=== PATIENT | male | born 1965 | race Caucasian/White ===

== ENCOUNTER 2022-07-23 09:33 | Emergency (ER) | payer OTHER, SELFPAY ==
[2022-07-23 09:56] VITALS: BP 146/72; PULSE 65; RESP 18; TEMP 36.4; O2SAT 99
--- NOTE | 2022-07-23 10:05 | ED.GENADULT ---
HPI - General Adult General Chief complaint: Weakness Stated complaint: weakness Time Seen by Provider: 07/23/22 10:07 Source: patient, RN notes reviewed and old records reviewed Mode of arrival: ambulatory Limitations: no limitations History of Present Illness HPI narrative: 56-year-old male presents to the [facility] with 3 weeks of generalized weakness, decreased appetite after having 3 teeth pulled 3 weeks ago. States symptoms have progressively been getting worse. states that he was not prescribed any pain medication or antibiotics at that time. states that on Wednesday she finally called the dentist and was prescribed amoxicillin. also states for the last 3 weeks he has been having bleeding from the gums. States this morning about an hour prior to arrival had a syncopal episode, sitting in a chair, significant other reports that his eyes rolled in the back of his head and he became unresponsive. States that they called 911 but a neighbor came over and helped him into a car and [facility] denies that he fell or hit his head Patient denies any shortness of breath, chest pain. Onset (ago): week(s) (3) Pain Consistency: constant Associated symptoms: loss of appetite, malaise, syncope and weakness Related Data Home Medications Medication Instructions Recorded Confirmed amoxicillin 500 mg capsule 500 mg PO TID 07/23/22 07/23/22 sildenafil 25 mg tablet 25 mg PO DAILY PRN erectil 07/23/22 07/23/22 dysfuntion Allergies Allergy/AdvReac Type Severity Reaction Status Date / Time No Known Allergies Allergy Verified 07/23/22 10:23 Review of Systems Review of Systems: All systems reviewed & are unremarkable except as noted in HPI and below Constitutional: Constitutional: Reports as per HPI, Reports fatigue, Reports lethargy, Reports poor appetite and Reports weakness Eyes: Eyes: Reports no additional eye complaints ENT: Reports as per HPI Cardiovascular: Cardiovascular: Reports no additional cardiovascular complaints, Denies chest pain and Denies dyspnea Respiratory: Respiratory: Reports no additional respiratory complaints, Denies chest congestion, Denies cough and Denies dyspnea Gastrointestinal: Gastrointestinal: Reports no additional gastrointestinal complaints, Denies abdominal pain, Denies nausea and Denies vomiting Musculoskeletal: Musculoskeletal: Reports no additional musculoskeletal complaints Integumentary/Breasts: Skin/Breast: Reports system reviewed and no additional complaints, except as docu Neurologic: Reports as per HPI Psychiatric: Psychiatric: Reports no additional psychiatric complaints Allergic/Immunologic: Allergic/Immunologic: Reports no additional allergic/immunologic complaints [facility] Surgical History Surgical History History of tonsillectomy and adenoidectomy Social History Social History Smoking packs per day: 0.5 Smoking cigarettes per day: 10.0 Years smoked: 8 Smoking pack-years: 4.00 Smoking status: Former smoker Alcohol intake: current Drinks per week: 2 Alcohol use details: 2/3 times a week Vodka....mixed and some beer Substance use: never Substance use type: does not use Lack of Transportation: No Lack of Food: Never True Current Housing: I Have Housing Concerned About Future Housing: No Difficulty Paying Gas/Electric Bills: No Education: High School Diploma/GED Living arrangements: with family Occupation/Education: occupation 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 There is no relevant family history pertinent to the patient complaint. Exam Const: General: cooperative, no acute distre
--- NOTE | 2022-07-23 10:28 | ECG_ITS ---
Measurements Intervals [place] Rate: 61 P: 68 WV: 174 QRS: 67 QRSD: 121 T: 51 QT: 435 QTc: 441 Interpretive Statements SINUS RHYTHM MODERATE INTRAVENTRICULAR CONDUCTION DELAY [110+ ms QRS DURATION] NO PREVIOUS ECG AVAILABLE FOR COMPARISON Electronically Signed On 07-23-2022 15:27:08 CDT by Brooke Snyder M.D.
== END 2022-07-23 10:15 | disposition short-term general hospital (02) ==
PROVIDERS: Emergency Provider Nurse Practitioner; PCP Nurse Practitioner Family
DX: R53.1 Weakness (principal); R55 Syncope and collapse; Z87.891 Personal history of nicotine dependence
CPT/HCPCS: 93005; 99213; G0463

== ENCOUNTER 2022-07-23 10:33 | Inpatient (IN) | payer OTHER, SELFPAY ==
[2022-07-23] VITALS (12 sets, daily range): BP systolic 141–166; BP diastolic 72–79; PULSE 65–79; RESP 12–22; TEMP 36.8–37.9; O2SAT 95–100; BMI 25.4
--- NOTE | ~2022-07-23 | CT_ITS ---
EXAMINATION: CT brain wo con DATE: 07/23/2022 11:49 INDICATION: Syncope. TECHNIQUE: Computed tomography (CT) of the head was performed without intravenous contrast. The mA wa s adjusted according to patient size. Iterative reconstruction technique was employed. The dose-lengt h product was 605.33 mGy-cm. COMPARISON: None FINDINGS: There is no intracranial hemorrhage, acute infarction, or abnormal intracranial mass lesion . The ventricles are normal in size. The orbits are normal. The paranasal sinuses are clear. The mast oid air cells are normal. IMPRESSION: 1. Normal brain. Reviewed, dictated and finalized at location A. IMPRESSION: 1. Normal brain.
--- NOTE | ~2022-07-23 | CT_ITS ---
EXAMINATION: CT chest abdomen pelvis w con DATE: 07/23/2022 11:49 INDICATION: Transient alteration of awareness TECHNIQUE: Transaxial computed tomographic images of the chest, abdomen, and pelvis were obtained aft er the administration of 100 cc of Omnipaque 350 intravenous contrast. The dose-length product (DLP) was 1184.83 mGy-cm. Automated exposure control and iterative reconstruction technique were employed. COMPARISON: None FINDINGS: CHEST CT: Minimal dependent atelectasis is present in the lung bases. The heart size is normal. There are no pa thologically enlarged thoracic lymph nodes. No pleural effusion or pneumothorax. There is mild thorac ic spondylosis. Moderate lower cervical spondylosis is noted. ABDOMEN/PELVIS CT: There is cirrhosis of the liver. There appear to be multiple tiny regenerative nodules in the liver. Splenomegaly is noted. There is recanalization of the umbilical vein with large varices of the right anterior abdominal wall. There is diffuse wall thickening of the gallbladder, likely related to chron ic liver disease. The pancreas and adrenal glands are normal. The kidneys are unremarkable. No free i ntraperitoneal gas or evidence of bowel obstruction. No pathologically enlarged abdominal or pelvic l ymph nodes are identified. There is severe lumbar spondylosis at L5-S1. IMPRESSION: 1. Cirrhosis of the liver with recanalization of the umbilical vein and large varices of right anteri or abdominal wall. Probable multiple regenerative nodules of the liver. 2. No acute findings in the chest. 3. Wall thickening of the gallbladder, likely related to chronic liver disease. Reviewed, dictated and finalized at location L. IMPRESSION: 1. Cirrhosis of the liver with recanalization of the umbilical vein and large v arices of right anterior abdominal wall. Probable multiple regenerative nodules of the liver. 2. No acute findings in the chest. 3. Wall thickening of the gallbladder, likely related to chronic liver disease.
--- NOTE | ~2022-07-23 | XR_ITS ---
EXAMINATION: XR chest 2V DATE: 07/23/2022 10:56 INDICATION: Weakness and syncope TECHNIQUE: AP and lateral views of the chest are obtained. COMPARISON: None available FINDINGS: There are minimal airspace opacities of the right middle lower lung zones. No pleural effus ion or pneumothorax. The cardiomediastinal silhouette is normal. There is mild thoracic spondylosis. Thoracic dextroscoliosis is noted. IMPRESSION: 1. Minimal airspace opacities of the right mid and lower lung zones, consistent with atelectasis vers us pneumonia. Reviewed, dictated and finalized at location L. IMPRESSION: 1. Minimal airspace opacities of the right mid and lower lung zones, consistent with atelectasis versus pneumonia.
--- NOTE | 2022-07-23 10:35 | ECG_ITS ---
Measurements Intervals [place] Rate: 67 P: 81 ME: 132 QRS: 64 QRSD: 120 T: 29 QT: 417 QTc: 441 Interpretive Statements SINUS RHYTHM MODERATE INTRAVENTRICULAR CONDUCTION DELAY [110+ ms QRS DURATION] COMPARED TO ECG 07/23/2022 10:14:13 NO SIGNIFICANT CHANGES Electronically Signed On 07-23-2022 15:27:41 CDT by Brooke Snyder M.D.
[2022-07-23 11:00] LABS: Basophils Percent Auto 1.1 % (0.2-1.2); Eosinophils Percent Auto 1.1 % (0-4.4); Hematocrit 38.9 % (42.0-52.0); Immature Granulocyte Absolute 0.01 K/mm3 (0.00-0.031); Immature Granulocyte Percent A 0.5 % (0-0.5); Immature Platelet Fraction Pct 11.8 % (0.9-11.2); Lymphocytes Percent Auto 32.1 % (18.3-44.2); Mean Corpuscular HGB Conc 33.4 g/dl (32-36); Mean Corpuscular Hemoglobin 29.8 pg (26-34); Mean Corpuscular Volume 89.2 fl (80-100); Monocytes Absolute Auto 0.2 K/mm3 (0.1-0.6); Monocytes Percent Auto 12.3 % (2.6-8.5); Neutrophils Percent Auto 52.9 % (45.5-73.1); Red Blood Count 4.36 M/mm3 (4.6-6.20); Red Cell Distribution Width 13.6 % (11.5-14.5)
[2022-07-23 11:06] LABS: INR 1.4; Prothrombin Time 18.5 Seconds (11.1-14.7)
[2022-07-23 11:07] LABS: Alanine Aminotransferase 232 U/L (6-50); Albumin Level 4.1 g/dL (3.5-5.1); Alkaline Phosphatase 128 U/L (38-126); Anion Gap 12 mmol/L (8-16); Aspartate Amino Transferase 579 U/L (17-59); Blood Urea Nitrogen 14 mg/dL (9-20); Calcium 8.6 mg/dL (8.4-10.2); Carbon Dioxide 30 mmol/L (22-30); Chloride 98 mmol/L (98-107); Estimated CRCL calculation 115 ml/min; Estimated Glomerular Filt Rate > 60; Glucose 149 mg/dL (65-110); Lipase 707 U/L (23-300); Partial Thromboplastin Time 35.3 SECONDS (22.3-36.8); Potassium 3.5 mmol/L (3.4-5.0); Sodium 140 mmol/L (137-145)
[2022-07-23 11:15] LABS: Platelet Count Result 10 k/mm3 (150-375)
[2022-07-23 11:16] LABS: White Blood Count 1.9 K/mm3 (4.5-10.0)
[2022-07-23 11:18] LABS: Troponin I < 0.012 ng/mL (0.000-0.034)
[2022-07-23] MEDS: SODIUM CHLORIDE 0.9% IV 1,000 ML 999 ML IV CONT ×2 (11:23)
--- NOTE | 2022-07-23 11:36 | ED.GENADULT ---
HPI - General Adult General Chief complaint: Weakness Stated complaint: weakness and syncope Time Seen by Provider: 07/23/22 10:53 Source: patient Mode of arrival: ambulatory Limitations: no limitations History of Present Illness HPI narrative: This is a 56-year-old male who presents to the ED with chief complaint of general malaise and generalized weakness for the past 3 weeks. Patient states that he had multiple teeth extracted 2 to 3 weeks ago and was having mouth bleeding for the past 2 weeks. States it actually just resolved a couple of days ago. He called his dentist and got amoxicillin which helped a little bit with the pain in the mouth. Overall patient states he just feels terrible. Reports a syncopal episode this morning while he was sitting on his couch. Was not associated with standing up, chest pain, shortness of breath. States he just felt a warm flushed feeling and woke up very sweaty. He states he has not been able to eat much in the past few weeks due to nausea and vomiting and feels very dehydrated. Endorses a couple of episodes of loose stools. Denies fevers, chills, abdominal pain, chest pain, cough, urinary symptoms. Initially denied smoking or drinking history. When I was able to reevaluate the patient he did admit to many years of being a chronic alcoholic. Related Data Home Medications Medication Instructions Recorded Confirmed amoxicillin 500 mg capsule 500 mg PO TID 07/23/22 07/23/22 sildenafil 25 mg tablet 25 mg PO DAILY PRN erectil 07/23/22 07/23/22 dysfuntion Allergies Allergy/AdvReac Type Severity Reaction Status Date / Time shellfish derived Allergy Itching Verified 07/23/22 14:17 Review of Systems Review of Systems: CONSTITUTIONAL: Denies fever, chills, or sweats. EYES: Denies visual changes, redness, or discharge. ENT: Denies rhinorrhea, congestion, sore throat, or otalgia. CARDIOVASCULAR: Denies chest pain, palpitations, or edema. RESPIRATORY: Denies cough or dyspnea. GASTROINTESTINAL: Denies abdominal pain, nausea, vomiting, or diarrhea. GENITOURINARY: Denies dysuria or hematuria. SKIN: Denies rash or itching. MUSCULOSKELETAL: Denies back pain, joint pain, or myalgia. NEUROLOGIC: Denies headache, numbness, dizziness, or weakness. PSYCHIATRIC: Denies anxiety or depression. PMFSH Surgical History Surgical History History of tonsillectomy and adenoidectomy Social History Social History Smoking packs per day: 0.5 Smoking cigarettes per day: 10.0 Years smoked: 8 Smoking pack-years: 4.00 Smoking status: Former smoker Alcohol intake: former Alcohol use details: 2/3 times a week Vodka....mixed and some beer Substance use: never Substance use type: does not use Lack of Transportation: No Lack of Food: Never True Current Housing: I Have Housing Concerned About Future Housing: No Difficulty Paying Gas/Electric Bills: No Difficulty Paying for Meds: No Currently Unemployed: No Education: High School Diploma/GED Difficulty w/ Childcare or Family Care: No Living arrangements: with family Occupation/Education: occupation 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 Appears ill, appears dry. HEAD: Normocephalic, atraumatic. EYES: PERRLA and EOMI. ENT: Nares clear, no rhinorrhea or epistaxis. Mucous membranes moist. Oropharynx without tonsillar hypertrophy exudate or other lesions. No blood noted throughout the oropharynx. NECK: Supple. No adenopathy or masses. CHEST: No respiratory distress. Clear to auscultation. No wheezes rales or rhonchi HEART: Regular rate and rhythm. No murmur heard. Normal peripheral pulses. ABDOMEN: Soft, nontend
[2022-07-23 12:41] LABS: Fibrinogen 206 mg/dl (215-510)
[2022-07-23 13:07] LABS: Ammonia 19 umol/L (9-30)
--- NOTE | 2022-07-23 13:58 | ADMGEN ---
This patient, Matthieu Fish, was admitted to 2 Medical Room 259-. Patient/family oriented to hospital policies and general routines including ID bracelet, bed and alarms, visiting hours, pain management, procedures, bathroom and other care routines, personal items, smoking policy, room service/diet, and visiting hours. Information on how to activate the Rapid Response Team has been discussed. Patient/Family are encouraged to report perceived risks to care and to ask questions if they do not understand what they are told or what they should do.
[2022-07-23] MEDS: SODIUM CHLORIDE 0.9% IV 1,000 ML 125 ML IV CONT (14:01)
[2022-07-23 14:37] LABS: Troponin I < 0.012 ng/mL (0.000-0.034)
--- NOTE | 2022-07-23 15:39 | WPDGICN ---
Assessment and Plan Assessment and plan (1) Cirrhosis of liver: Code(s): K74.60 - Unspecified cirrhosis of liver Status: Acute Assessment and Plan: he was a heavy drinker until a few weeks ago. He states he never had liver disease in the past. He is not aware of any family history of liver disease. He has not had hepatitis CT scan shows: ABDOMEN/PELVIS CT: There is cirrhosis of the liver. There appear to be multiple tiny regenerative nodules in the liver. Splenomegaly is noted. There is recanalization of the umbilical vein with large varices of the right anterior abdominal wall. There is diffuse wall thickening of the gallbladder, likely related to chronic liver disease. The pancreas and adrenal glands are normal. The kidneys are unremarkable. No free intraperitoneal gas or evidence of bowel obstruction. No pathologically enlarged abdominal or pelvic lymph nodes are identified. There is severe lumbar spondylosis at L5-S1 Abdominal wall varices were noted on CT scan but was no mention of esophageal varices fortunately. At some point he will need the EGD to determine whether he has varices which may need banding or at least a nonselective beta-cass to reduce portal venous pressure. (2) Weakness: Code(s): R53.1 - Weakness Status: Acute Assessment and Plan: etiology of his weakness is not clear as his hemoglobin is normal (3) Syncope: Qualifiers: Syncope type: unspecified Qualified Code(s): R55 - Syncope and collapse Code(s): R55 - Syncope and collapse Status: Acute Assessment and Plan: he did faint this morning as he was lightheaded. (4) Acquired pancytopenia: Code(s): D61.818 - Other pancytopenia Status: Acute Assessment and Plan: Hematology has been consulted regarding his severe thrombocytopenia and neutropenia. Certainly thrombocytopenia could be due to cirrhosis at least in part INR is elevated 1.4 indicating some hepatic decompensation. fortunately, blood ammonia level is in the normal range. (5) Transaminitis: Code(s): R74.01 - Elevation of levels of liver transaminase levels Status: Acute Assessment and Plan: his LFTs will need to be monitored, and observe for hepatic failure but I personally do not think that that is an issue at this point. INR 1.4 suggests some chronic liver disease. I will check for hepatitis etcetera other although alcohol seems to be the etiology of his liver disease based on his history. GI Consult Note Consult date/time: 07/23/22 15:39 HPI: Matthieu Fish is a 56 year old male Who presented to the emergency room with generalized malaise. He also gave a history that he has been bleeding from his mouth for most of the past 3 weeks since he had dental surgery. That actually has subsided to some extent. He had discomfort and also was given an antibiotic by his dentist. He denies nose bleeds or other types of bleeding lately or excessive bruising but his platelet counts found to be 10,000 on labs drawn in the emergency room also his white blood count is low at 1,900. His hemoglobin however is actually normal at 13. PT is 18.5 seconds with INR 1.4. Also he has elevation of liver enzymes. He states that he no longer drinks alcohol but when I asked him when he quit he stated was last month prior to that he drink vodka on a daily basis. He had never been told in the past that he had liver disease although CT scan shows cirrhosis and Review of Systems Review of Systems: All systems reviewed & are unremarkable except as noted in HPI and below [facility] Surgical History Surgical History History of tonsillectomy and adenoidectomy Social History Social History Smoking packs per day: 0.5 Smoking cigarettes per day: 10.0 Years smoked: 8 Smoking pack-years: 4.00 S
[2022-07-23 18:12] LABS: Troponin I < 0.012 ng/mL (0.000-0.034)
--- NOTE | 2022-07-23 18:41 | PM.IMHP ---
H&P: HPI History of Present Illness Date/Time: 07/23/22 18:41 Chief Complaint: weakness Narrative: This is a 56-year-old male patient came to the emergency room with complaints of generalized malaise generalized weakness for the last 3 weeks. The patient had his teeth extraction approximate 2-3 weeks ago had been having mouth bleeding. The patient stated that his bleeding gums chest resolved 2 days ago. He did call his dentist who just gave him a prescription for amoxicillin which helped for a little bit. The patient states he just does not feel very well. He felt like he was flushed and he has not been eating very much in the past few weeks due to nausea vomiting any feels that he may be dehydrated. The patient also had a couple episodes of loose stools. He denies any fever chills abdominal pain chest pain or urinary symptoms. His white count is 1.9, red blood cell 4.36, hemoglobin 13.0, hematocrit 38.9, platelets 10. Troponin was negative x3. Total bilirubin 2.0 AST 579 ALT is 232 ammonia levels 19. Alkaline phosphatase 120. Chest abdomen pelvis CT was read as1. Cirrhosis of the liver with recanalization of the umbilical vein and large varices of right anterior abdominal wall. Probable multiple regenerative nodules of the liver. 2. No acute findings in the chest. 3. Wall thickening of the gallbladder, likely related to chronic liver disease. head CT read as normal brain. Chest x-ray was read as. Minimal airspace opacities of the right mid and lower lung zones, consistent with atelectasis versus pneumonia. patient was given aspirin and 4 packs of IV fluids. GI has been consulted as well as Hematology. . The patient is being admitted to observation status on the date of service of 07/23/2022. Review of Systems Review of Systems: All systems reviewed & are unremarkable except as noted in HPI and below Constitutional: Constitutional: Reports as per HPI and Reports no additional constitutional complaints Eyes: Eyes: Reports as per HPI and Reports no additional eye complaints ENT: Reports system reviewed and no additional complaints, except as documented and Reports Normal hearing present Cardiovascular: Cardiovascular: Reports no additional cardiovascular complaints Respiratory: Respiratory: Reports no additional respiratory complaints and Reports no additional respiratory complaints Gastrointestinal: Gastrointestinal: Reports as per HPI and Reports no additional gastrointestinal complaints Musculoskeletal: Musculoskeletal: Reports no additional musculoskeletal complaints Integumentary/Breasts: Skin/Breast: Reports system reviewed and no additional complaints, except as docu and Reports as per HPI Neurologic: Reports system reviewed and no additional complaints, except as documented, Reports as per HPI and Reports Normal hearing present Psychiatric: Psychiatric: Reports no additional psychiatric complaints and Reports as per HPI Endocrine: Endocrine: Reports no additional endocrine complaints Hematologic/Lymphatic: Hematologic/Lymphatic: Reports no additional hematologic/lymphatic complaints Allergic/Immunologic: Allergic/Immunologic: Reports no additional allergic/immunologic complaints PMFSH Past Medical History Medical History Erectile dysfunction Surgical History Surgical History History of tonsillectomy and adenoidectomy Social History Social History (Updated 07/23/22 @ 22:52 by America Yoon NP) Social History: the patient lives with his and has 1 son. 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 Code status full code Smoking packs per day: 0.5 Smoking cigarettes per day: 10.0 Years smoked: 8 Smoking pack-years: 4.00 Smoking status: Former smoker Alcohol intake: former Alcohol use details: 2/3 times a week Vodka..
[2022-07-24] VITALS (16 sets, daily range): BP systolic 148–164; BP diastolic 75–91; PULSE 63–85; RESP 16–18; TEMP 36.5–37.3; O2SAT 99–100
[2022-07-24] MEDS: SODIUM CHLORIDE 0.9% IV 1,000 ML 125 ML IV CONT ×2 (01:16→08:29)
[2022-07-24 02:28] LABS: Hepatitis B Surface Antigen Negative (Negative)
[2022-07-24 02:33] LABS: HAV RESULT Negative (Negative); Hepatitis B Core IgM Result Negative (Negative)
[2022-07-24 02:45] LABS: Hepatitis C Virus Antibody Negative (Negative)
[2022-07-24] MEDS: ONDANSETRON INJ 4 MG/2 ML VIAL IV PUSH (04:06)
[2022-07-24 05:16] LABS: Basophils Percent Auto 0.5 % (0.2-1.2); Hematocrit 36.5 % (42.0-52.0); Hemoglobin 12.2 g/dL (14.0-18.0); Immature Granulocyte Absolute 0.01 K/mm3 (0.00-0.031); Immature Granulocyte Percent A 0.5 % (0-0.5); Immature Platelet Fraction Pct 6.7 % (0.9-11.2); Lymphocytes Percent Auto 20.5 % (18.3-44.2); Mean Corpuscular HGB Conc 33.4 g/dl (32-36); Mean Corpuscular Volume 89.7 fl (80-100); Mean Platelet Volume 9.4 fl (7.4-10.4); Monocytes Absolute Auto 0.3 K/mm3 (0.1-0.6); Monocytes Percent Auto 13.8 % (2.6-8.5); Neutrophils Absolute Auto 1.2 K/mm3 (1.3-6.7); Neutrophils Percent Auto 63.7 % (45.5-73.1); Red Blood Count 4.07 M/mm3 (4.6-6.20); Red Cell Distribution Width 13.7 % (11.5-14.5)
[2022-07-24 05:20] LABS: Platelet Count Result 24 k/mm3 (150-375)
[2022-07-24 05:22] LABS: Lactic Acid Reflex 1.4 mmol/L (0.7-2.0)
[2022-07-24 05:27] LABS: Alanine Aminotransferase 197 U/L (6-50); Albumin Level 3.9 g/dL (3.5-5.1); Alkaline Phosphatase 108 U/L (38-126); Anion Gap 10 mmol/L (8-16); Aspartate Amino Transferase 440 U/L (17-59); Bilirubin,Total 2.6 mg/dL (0.2-1.3); Blood Urea Nitrogen 7 mg/dL (9-20); Calcium 8.3 mg/dL (8.4-10.2); Carbon Dioxide 29 mmol/L (22-30); Chloride 97 mmol/L (98-107); Estimated CRCL calculation 155 ml/min; Estimated Glomerular Filt Rate > 60; Glucose 119 mg/dL (65-110); Magnesium 1.7 mg/dL (1.6-2.3); Potassium 3.8 mmol/L (3.4-5.0); Sodium 136 mmol/L (137-145)
--- NOTE | 2022-07-24 06:18 | WPDGIPROGNO ---
Progress Note: A&P Assessment and Plan (1) Cirrhosis of liver: Code(s): K74.60 - Unspecified cirrhosis of liver Status: Acute Assessment and Plan: he was a heavy drinker until a few weeks ago. He states he never had liver disease in the past. He is not aware of any family history of liver disease. He has not had hepatitis CT scan shows: ABDOMEN/PELVIS CT: There is cirrhosis of the liver. There appear to be multiple tiny regenerative nodules in the liver. Splenomegaly is noted. There is recanalization of the umbilical vein with large varices of the right anterior abdominal wall. There is diffuse wall thickening of the gallbladder, likely related to chronic liver disease. The pancreas and adrenal glands are normal. The kidneys are unremarkable. No free intraperitoneal gas or evidence of bowel obstruction. No pathologically enlarged abdominal or pelvic lymph nodes are identified. There is severe lumbar spondylosis at L5-S1 Abdominal wall varices were noted on CT scan but was no mention of esophageal varices fortunately. At some point he will need the EGD to determine whether he has varices which may need banding or at least a nonselective beta-cass to reduce portal venous pressure. 07/24/2022 hepatitis serology is negative. Ferritin slightly elevated at 501. This however is not unusual in somebody with alcoholic liver disease. Will obtain iron studies to see if his% saturation is high enough to consider hemochromatosis. (2) Weakness: Code(s): R53.1 - Weakness Status: Inactive Assessment and Plan: etiology of his weakness is not clear as his hemoglobin is normal (3) Syncope: Qualifiers: Syncope type: unspecified Qualified Code(s): R55 - Syncope and collapse Code(s): R55 - Syncope and collapse Status: Inactive Assessment and Plan: he did faint this morning as he was lightheaded. (4) Acquired pancytopenia: Code(s): D61.818 - Other pancytopenia Status: Acute Assessment and Plan: Hematology has been consulted regarding his severe thrombocytopenia and neutropenia. Certainly thrombocytopenia could be due to cirrhosis at least in part INR is elevated 1.4 indicating some hepatic decompensation. fortunately, blood ammonia level is in the normal range. He received platelet infusion yesterday. His platelet count is up to 24,000. (5) Transaminitis: Code(s): R74.01 - Elevation of levels of liver transaminase levels Status: Acute Assessment and Plan: his LFTs will need to be monitored, and observe for hepatic failure but I personally do not think that that is an issue at this point. INR 1.4 suggests some chronic liver disease. I will check for hepatitis etcetera other although alcohol seems to be the etiology of his liver disease based on his history. Plan I discussed liver disease and cirrhosis with him as well as all the possible complications including esophageal varices with hemorrhage , hepatic encephalopathy, ascites, etc.. He states that he is going to definitely stay away from alcohol. Subjective Date/time seen: 07/24/22 06:18 He feels good today. He ate dinner last night but he did have some emesis. He received something a little while ago for nausea. There was no blood in his emesis. He was pleased to see that his platelet count came up after the platelet pheresis. However is only 24,000. I explained him that eventually he will need an EGD but not until he has a platelet count of at least 50,000 or more. Exam Const: General: cooperative and healthy appearing Orientation/consciousness: patient oriented x3 HENMT: Head: normal to inspection Ears: hearing grossly normal bilaterally Mouth: Yes Normal oral and palatal mucosa present Eyes: General: appearance normal, both eyes and all related structures Sclera: sclerae normal Neck: Neck: normal visual inspection Chest: Chest palpation & inspectio
[2022-07-24 07:30] LABS: Iron 123 ug/dL (49-181)
[2022-07-24 07:41] LABS: Percent Iron Saturation 42 % (20-50)
[2022-07-24] MEDS: FAMOTIDINE 20 MG/2 ML VIAL IV PUSH (08:31)
--- NOTE | 2022-07-24 10:25 | PM.IMPN ---
Progress Note: A&P Assessment and Plan (1) Pancytopenia: Code(s): D61.818 - Other pancytopenia Status: Acute Assessment and Plan: Presumed secondary to liver cirrhosis. Platelets 10 on admission and given 1 unit FFP. 07/24/22 platelets 24 today. H/H stable. Gums no longer bleeding. WBC 2 without s/s acute infection. hematology oncology consulted and appreciate recommendations. (2) Cirrhosis of liver: Code(s): K74.60 - Unspecified cirrhosis of liver Status: Acute Assessment and Plan: CT scan shows liver cirrhosis with recanalization umbilical vein and large varices of right anterior abdominal wall. Gallbladder wall thickening noted with chronic liver disease. GI consulted and appreciate recommendations. Nadolol 20 mg PO daily. INR 1.4 hepatitis panel negative Trend LFTs. He reports his last drink was 1 month ago. He will need EGD for evaluation of esophageal varices. (3) Varices of other sites: Code(s): I86.8 - Varicose veins of other specified sites Status: Acute Assessment and Plan: As above. (4) Transaminitis: Code(s): R74.01 - Elevation of levels of liver transaminase levels Status: Acute Assessment and Plan: LFTs elevated on admission. Secondary to liver cirrhosis. (5) Syncope: Qualifiers: Syncope type: unspecified Qualified Code(s): R55 - Syncope and collapse Code(s): R55 - Syncope and collapse Status: Resolved Assessment and Plan: Patient reported syncopal episode prior to admission. Likely secondary to dehydration. Treated with IV fluids. Monitor BP and orthostatic vitals. 07/24/22 orthostatic BP negative Plan CODE STATUS: FULL CODE Discharge disposition: from home. Estimated LOS: possible discharge tomorrow if continues to improve and cleared by GI and Hem/Onc Time Spent With Patient Time with patient: 25 - 35 minutes Subjective Date/time seen: 07/24/22 10:25 Interval history: Patient denies new symptoms or concerns. He states his gums are not bleeding. He denies unusual bruising or epistaxis. He denies abdominal pain, nausea, vomiting, abdominal distention, or stool changes. No chest pain, SOB, dizziness or palpitations. Review of Systems Review of Systems: All systems reviewed & are unremarkable except as noted in HPI and below Exam Narrative: General: No acute distress. Adult male lying in bed. Mental Status/Psych: Awake, alert and oriented x4 with clear speech. Pleasant and cooperative. Skin: Facial telangiectasis. fair, warm, dry without open wounds. HEENT: Normocephalic. Atraumatic. Sclera is non-icteric. Pupils equal and round. EOM intact. Oral mucosa pink and moist. Missing dentition. Neck: No JVD. Heart: S1 and S2 regular rate and rhythm. No murmurs, gallops, or rubs auscultated. Chest: Respirations even and unlabored. Lung sounds are clear to auscultation without wheezes, rhonchi, or rales. Abdomen: Soft, obese and non-tender to palpation. Bowel sounds present in all 4 quadrants. No guarding. Extremities: No edema, erythema or calf tenderness. Grossly normal ROM. Neurological: No focal sensory or motor deficits. No asterixis. Cranial nerves 2-12 grossly intact. Objective Data Vital Signs Vital Signs: Vital Signs - 24 hr 07/23/22 10:43 07/23/22 10:58 07/23/22 11:01 Temperature 98.2 F Pulse Rate 77 79 75 Respiratory Rate 16 18 Blood Pressure 158/79 H 158/79 H Pulse Oximetry 100 98 Oxygen Delivery Room Air Room Air 07/23/22 13:20 07/23/22 13:55 07/23/22 13:49 Temperature 99.2 F Pulse Rate 76 73 76 Respiratory Rate 18 12 Blood Pressure 141/73 H 165/78 H Pulse Oximetry 95 97 Oxygen Delivery 07/23/22 16:00 07/23/22 17:26 07/23/22 17:32 Temperature 100.2 F H 98.2 F Pulse Rate 72 72 72 Respiratory Rate 22 H 22 H Blood Pressure 154/72 H 154/72 H Pulse Oximetry 97 97 Oxygen Delivery
[2022-07-24] MEDS: nadoloL 20 MG TABLET PO (15:04)
--- NOTE | 2022-07-24 17:14 | PDONCCN ---
HPI - Date of Consult Date/Time: 07/24/22 17:14 Requesting Physician: Pam Alvarado MD Primary Care Provider: Bita Kelly APRN - Consult Narrative Reason for consult: Pancytopenia Narrative: Matthieu Fish is a 56 year old male who has been in good health except history of heavy alcohol consumption in the past for at least 5 years duration had recent molar teeth extraction done about 2-3 weeks ago and started having oral bleeding just last week. He was prescribed amoxicillin. Patient came into the office for generalized weakness and syncopal episode. He denies any chest pain and shortness of breath. Patient had some loose stools. CT abdomen and pelvis showed liver cirrhosis with splenomegaly. He denies any previous history of liver disease. He denies any history of blood disorder[place] [address]. He was transfused 1 unit of platelet pheresis with improvement and platelet count now up to 24,000. Labs also showed WBC count of 1.9 and hemoglobin of 13. Liver enzymes showed total bilirubin of 2.0 with elevated AST and ALT. Review of Systems - Review of Systems All systems reviewed & are unremarkable except as noted in HPI and bel - Neurologic Reports system reviewed and no additional complaints, except as documented, Reports hearing normal [facility] Medical History: Medical History (Last Reviewed 07/23/22 @ 22:49 by America Yoon NP) Erectile dysfunction Surgical History: Surgical History (Last Reviewed 07/23/22 @ 22:50 by America Yoon NP) History of tonsillectomy and adenoidectomy - Social History Social History: Social History (Last Updated 07/23/22 @ 22:52 by America Yoon NP) Gender Identity: Gender identity (if verbalized by the patient): Male Alcohol Use: Alcohol intake: former Alcohol use details: 2/3 times a week Vodka....mixed and some beer Substance Use: Substance use: never Substance use type: does not use Others: Spiritual care concerns: No Living Arrangements: Living arrangements: with family Oppucation/Education: Occupation/Education: occupation Smoking Status: Smoking status: Former smoker Smoking Pack-years: Smoking packs per day: 0.5 Smoking cigarettes per day: 10.0 Years smoked: 8 Smoking pack-years: 4.00 Social Determinants of Health: Has the Lack of Transportation Kept You From Medical Appointments or From Getting Medications?: No Within the Past 12 Months, Were You Worried Whether Your Food Would Run Out Before You Got Money to Buy More?: Never True What is Your Housing Situation Today?: I Have Housing Are You Worried That in the Next 2 Months, You May Not Have Your Own Housing to Live In?: No Do You Have Trouble Paying Your Heating Or Electricity Bill?: No Do You Have Trouble Paying For Medicines?: No Are You Currently Unemployed and Looking for Work?: No Highest Level of Education Completed: High School Diploma/GED Do You Have Trouble With Childcare or the Care of a Family Member?: No Exam - Vital Signs Vital Signs - 24 hr 07/23/22 17:26 07/23/22 17:32 07/23/22 18:45 Temperature 37.9 C H 36.8 C 37.3 C Pulse Rate 72 72 72 Respiratory Rate 22 H 22 H 12 Blood Pressure 154/72 H 154/72 H 151/75 H Pulse Oximetry 97 97 98 Oxygen Delivery 07/23/22 19:50 07/23/22 20:00 07/23/22 20:00 Temperature 37.2 C Pulse Rate 71 65 Respiratory Rate 18 Blood Pressure 166/74 H Pulse Oximetry 98 Oxygen Delivery Room Air 07/24/22 00:00 07/24/22 04:00 07/24/22 05:16 Temperature 36.5 C Pulse Rate 63 66 69 Respiratory Rate 18 Blood Pressure 152/83 H Pulse Oximetry 99 Oxygen Delivery 07/24/22 10:45 07/24/22 10:50 07/24/22 10:55 Temperature Pulse Rate Respiratory Rate Blood Pressure 157/75 H 164/78 H 156/85 H Pulse Oximetry Oxygen Delivery 07/24/22 08:30 07/24/22 14:28 07/24/22
[2022-07-24 18:45] LABS: Iron 90 ug/dL (49-181)
[2022-07-24 18:54] LABS: Percent Iron Saturation 30 % (20-50)
[2022-07-24 19:48] LABS: Folic Acid 9.6 ng/mL (2.76->20)
[2022-07-24] MEDS: FAMOTIDINE 20 MG TABLET PO (20:00)
[2022-07-25] VITALS (7 sets, daily range): BP systolic 133–149; BP diastolic 80–87; PULSE 58–70; RESP 20; TEMP 36.9; O2SAT 100
[2022-07-25 05:52] LABS: Hematocrit 39.3 % (42.0-52.0); Hemoglobin 13.2 g/dL (14.0-18.0); Mean Corpuscular HGB Conc 33.6 g/dl (32-36); Mean Corpuscular Hemoglobin 30.1 pg (26-34); Mean Corpuscular Volume 89.5 fl (80-100); Mean Platelet Volume 10.4 fl (7.4-10.4); Platelet Count Result 28 k/mm3 (150-375); Red Blood Count 4.39 M/mm3 (4.6-6.20); Red Cell Distribution Width 13.8 % (11.5-14.5); White Blood Count 3.3 K/mm3 (4.5-10.0)
[2022-07-25 06:05] LABS: Alanine Aminotransferase 163 U/L (6-50); Albumin Level 3.8 g/dL (3.5-5.1); Alkaline Phosphatase 113 U/L (38-126); Anion Gap 9 mmol/L (8-16); Aspartate Amino Transferase 296 U/L (17-59); Bilirubin,Total 3.1 mg/dL (0.2-1.3); Blood Urea Nitrogen 8 mg/dL (9-20); Calcium 8.5 mg/dL (8.4-10.2); Carbon Dioxide 28 mmol/L (22-30); Chloride 99 mmol/L (98-107); Estimated CRCL calculation 155 ml/min; Estimated Glomerular Filt Rate > 60; Glucose 96 mg/dL (65-110); Potassium 3.6 mmol/L (3.4-5.0); Sodium 136 mmol/L (137-145)
--- NOTE | 2022-07-25 08:35 | WPDGIPROGNO ---
Progress Note: A&P Assessment and Plan (1) Cirrhosis of liver: Code(s): K74.60 - Unspecified cirrhosis of liver Status: Acute Assessment and Plan: he was a heavy drinker for years, slowed down few years ago and quit 30 days ago. probably etiology of cirrhosis he will need to follow-up with Dr Gurrola and EGD can be set up as outpatient to assess for varices, PHG, etc. Also he will need colonoscopy as screening since never had one he will be abstinent from alcohol will need routine check up at least every 6 months and HCC surveillance (2) Transaminitis: Code(s): R74.01 - Elevation of levels of liver transaminase levels Status: Acute Assessment and Plan: from cirrhosis, stable (3) Pancytopenia: Code(s): D61.818 - Other pancytopenia Status: Acute Assessment and Plan: probably from cirrhosis work up for itp pending (hematology on board) (4) Acquired pancytopenia: Code(s): D61.818 - Other pancytopenia Status: Acute (5) Varices of other sites: Code(s): I86.8 - Varicose veins of other specified sites Status: Acute Assessment and Plan: egd as outpatient once platelets better Subjective Date/time seen: 07/25/22 08:35 Interval history: no new issues, he is feeling better and tolerating breakfast. He is walking down the [address] and asking if he could go home Review of Systems Review of Systems: All systems reviewed & are unremarkable except as noted in HPI and below Exam Const: General: cooperative and healthy appearing Orientation/consciousness: patient oriented x3 HENMT: Head: normal to inspection Ears: hearing grossly normal bilaterally Eyes: General: appearance normal, both eyes and all related structures Neck: Neck: normal visual inspection Chest: Chest palpation & inspection: normal inspection of the chest Resp: Effort & Inspection: normal respiratory effort Auscultation: clear to auscultation bilaterally Cardio: Rate: regular rate Rhythm: regular rhythm GI: Inspection: normal to inspection Auscultation: normal bowel sounds Skin: Other: mild icteric sclerae Neuro: General: patient oriented x3 Speech: normal speech Motor exam (neuro): No Asterixis during motor activity present Extrem: General: normal to inspection Psych: Mental Status: mental status grossly normal Objective Data Vital Signs Vital Signs: Vital Signs - 24 hr 07/24/22 10:45 07/24/22 10:50 07/24/22 10:55 Temperature Pulse Rate Respiratory Rate Blood Pressure 157/75 H 164/78 H 156/85 H Pulse Oximetry Oxygen Delivery 07/24/22 14:28 07/24/22 15:04 07/24/22 12:00 Temperature 99.1 F Pulse Rate 80 80 85 Respiratory Rate 18 Blood Pressure 152/78 H Pulse Oximetry 100 Oxygen Delivery 07/24/22 16:00 07/24/22 19:54 07/24/22 19:55 Temperature 99 F Pulse Rate 70 65 65 Respiratory Rate 16 Blood Pressure 151/91 H 151/91 H Pulse Oximetry 99 Oxygen Delivery 07/24/22 19:59 07/24/22 19:57 07/24/22 20:00 Temperature Pulse Rate 71 64 Respiratory Rate Blood Pressure 148/89 H 157/90 H Pulse Oximetry Oxygen Delivery Room Air 07/24/22 20:00 07/25/22 00:00 07/25/22 04:03 Temperature 98.5 F Pulse Rate 64 62 64 Respiratory Rate 20 Blood Pressure 142/87 H Pulse Oximetry 100 Oxygen Delivery 07/25/22 04:00 Temperature Pulse Rate 58 L Respiratory Rate Blood Pressure Pulse Oximetry Oxygen Delivery Intake/Output Intake/Output: Intake & Output 07/22/22 07/23/22 07/24/22 07/25/22 23:59 23:59 23:59 23:59 Intake Total 3460 2145 350 Output Total 200 Balance 3460 1945 350 Meds/Results Medications: Active Medications Generic Name Dose Route Start Last Admin Trade Name Freq PRN Reason Stop Dose Admin Famotidine 20 mg 07/24/22 21:00 07/24/22 20:00 Famotidine 20 Mg Tablet PO 20 mg Q12HR ANA Administration Nadolol 20 mg
[2022-07-25] MEDS: nadoloL 20 MG TABLET PO (08:40)
[2022-07-25] MEDS: FAMOTIDINE 20 MG TABLET PO (08:40)
--- NOTE | 2022-07-25 08:51 | PC.NURSE ---
Dr Hamilton said it is okay for patient to be discharged home today.
[2022-07-25] MEDS: predniSONE 20 MG TABLET 60 MG PO (09:19)
--- NOTE | 2022-07-25 10:46 | PM.DS ---
DS: Admitting Diagnosis Discharge Date 07/25/2022 Admitting Diagnosis Pancytopenia Elevation of levels of liver transaminase levels Syncope and collapse DS: Discharge Diagnosis Discharge Diagnosis (1) Pancytopenia: Code(s): D61.818 - Other pancytopenia Status: Acute Assessment and Plan: Presumed secondary to liver cirrhosis. Platelets 10 on admission and given 1 unit FFP. 07/24/22 platelets 24. 07/25/22 platelets 28. H/H stable. Gums no longer bleeding. WBC 2 without s/s acute infection. hematology/oncology consulted and appreciate recommendations. Patient was started on prednisone 60 mg PO BID with taper 10 mg every 3 days for possible ITP. (2) Cirrhosis of liver: Qualifiers: Hepatic cirrhosis type: alcoholic cirrhosis Ascites presence: without ascites Qualified Code(s): K70.30 - Alcoholic cirrhosis of liver without ascites Code(s): K74.60 - Unspecified cirrhosis of liver Status: Acute Assessment and Plan: CT scan shows liver cirrhosis with recanalization umbilical vein and large varices of right anterior abdominal wall. Gallbladder wall thickening noted with chronic liver disease. GI consulted and appreciate recommendations. Nadolol 20 mg PO daily. INR 1.4 hepatitis panel negative Trend LFTs- trending down. He reports his last drink was 1 month ago. He will need EGD for evaluation of esophageal varices outpatient. Follow up with GI. (3) Varices of other sites: Code(s): I86.8 - Varicose veins of other specified sites Status: Acute Assessment and Plan: As above. (4) Transaminitis: Code(s): R74.01 - Elevation of levels of liver transaminase levels Status: Acute Assessment and Plan: LFTs elevated on admission. Secondary to liver cirrhosis. Trending down (5) Syncope: Qualifiers: Syncope type: unspecified Qualified Code(s): R55 - Syncope and collapse Code(s): R55 - Syncope and collapse Status: Resolved Assessment and Plan: Patient reported syncopal episode prior to admission. Likely secondary to dehydration. Treated with IV fluids. 07/24/22 orthostatic BP negative DS: Summary Hospital Course Reason for hospitalization: Weakness Hospital Course: Patient is a 56-year-old male patient who came to the emergency room with complaint of generalized malaise and generalized weakness for 3 weeks.? The patient had teeth extraction approximate 2-3 weeks prior and had been having mouth bleeding.? The patient stated that his bleeding gums finally resolved 2 days prior.? He had called his dentist who gave him a prescription for amoxicillin, which helped for a little bit.? The patient stated he does not feel very well.? He felt like he was flushed and he had not been eating very much in the past few weeks due to nausea and vomiting. He felt that he may be dehydrated and had a couple episodes of loose stools.? He denied fever, chills, abdominal pain, chest pain, or urinary symptoms.? His white count was 1.9, red blood cell 4.36, hemoglobin 13.0, hematocrit 38.9, platelets 10.? Troponin was negative x3.? Total bilirubin 2.0, AST 579, ALT 232, ammonia levels 19.? Alkaline phosphatase 120.? Chest, abdomen and pelvis CT showed cirrhosis of the liver with recanalization of the umbilical vein and large varices of right anterior abdominal wall, probable multiple regenerative nodules of the liver, and wall thickening of the gallbladder, likely related to chronic liver disease. Head CT was negative. Chest x-ray showed minimal airspace opacities of the right mid and lower lung zones, consistent with atelectasis versus pneumonia. He was given IV fluids, 1 unit platelets and admitted to the medical floor. GI and Hematology were consulted for further evaluation. He has a history of heavy alcohol use and reportedly quit drinking 1 month ago. He was treated with IV fluids. Orthostatic v
== END 2022-07-25 11:30 | disposition home or self-care (01) | DRG 433 ==
LOC: ANHED 12:52 → ANH2MED 13:41
PROVIDERS: Emergency Medicine; Internal Medicine Gastroenterology; Internal Medicine Hematology & Oncology; Nurse Practitioner; Admitting Provider Internal Medicine; Emergency Provider Physician Assistant; PCP Nurse Practitioner Family; Visit Provider Nurse Practitioner Family
DX: K70.30 Alcoholic cirrhosis of liver without ascites (principal); D61.818 Other pancytopenia; I86.8 Varicose veins of other specified sites; E86.0 Dehydration; F10.20 Alcohol dependence, uncomplicated; R53.1 Weakness; R55 Syncope and collapse; R74.01 Elevation of levels of liver transaminase levels; R16.1 Splenomegaly, not elsewhere classified; Z87.891 Personal history of nicotine dependence
CPT/HCPCS: 36415; 36430; 70450; 71046; 71260; 74177; 80053; 80074; 82140; 82607; 82728; 82746; 83540; 83550; 83605; 83690; 83735; 84443; 84484; 85025; 85027; 85055; 85384; 85610; 85730; 86023; 86038; 86850; 86900; 86901; 93005; 96360; 96361; 96374; 96375; 99213; 99285; A9270; G0378; G0463; J2405; J7030; J7512; P9034; Q9967

== ENCOUNTER 2022-08-18 10:36 | Outpatient (CLI) | payer OTHER, SELFPAY ==
[2022-08-18 11:15] LABS: Basophils Percent Auto 0.5 % (0.2-1.2); Eosinophils Absolute Auto 0.1 K/mm3 (0-0.3); Eosinophils Percent Auto 1.6 % (0-4.4); Hematocrit 41.4 % (42.0-52.0); Hemoglobin 13.5 g/dL (14.0-18.0); Immature Granulocyte Absolute 0.03 K/mm3 (0.00-0.031); Immature Granulocyte Percent A 0.4 % (0-0.5); Immature Platelet Fraction Pct 7.1 % (0.9-11.2); Lymphocytes Absolute Auto 1.34 K/mm3 (0.9-3.2); Lymphocytes Percent Auto 17.4 % (18.3-44.2); Mean Corpuscular HGB Conc 32.6 g/dl (32-36); Mean Corpuscular Hemoglobin 30.5 pg (26-34); Mean Corpuscular Volume 93.5 fl (80-100); Mean Platelet Volume 11.9 fl (7.4-10.4); Monocytes Absolute Auto 0.6 K/mm3 (0.1-0.6); Neutrophils Absolute Auto 5.6 K/mm3 (1.3-6.7); Neutrophils Percent Auto 72.1 % (45.5-73.1); Platelet Count Result 84 k/mm3 (150-375); Red Blood Count 4.43 M/mm3 (4.6-6.20); Red Cell Distribution Width 15.8 % (11.5-14.5); White Blood Count 7.7 K/mm3 (4.5-10.0)
== END 2022-08-18 10:37 | disposition home or self-care (01) ==
PROVIDERS: PCP Nurse Practitioner Family; Visit Provider Internal Medicine Gastroenterology
DX: D69.6 Thrombocytopenia, unspecified (principal)
CPT/HCPCS: 36415; 85025; 85055

== ENCOUNTER 2022-09-24 12:32 | Outpatient (CLI) | payer OTHER, SELFPAY ==
[2022-09-24 12:58] LABS: Basophils Absolute Auto 0.1 K/mm3 (0.0-0.1); Basophils Percent Auto 1.1 % (0.2-1.2); Eosinophils Absolute Auto 0.2 K/mm3 (0-0.3); Eosinophils Percent Auto 3.5 % (0-4.4); Hematocrit 40.2 % (42.0-52.0); Hemoglobin 13.2 g/dL (14.0-18.0); Immature Granulocyte Absolute 0.01 K/mm3 (0.00-0.031); Immature Granulocyte Percent A 0.2 % (0-0.5); Immature Platelet Fraction Pct 6.9 % (0.9-11.2); Lymphocytes Absolute Auto 1.84 K/mm3 (0.9-3.2); Lymphocytes Percent Auto 34.3 % (18.3-44.2); Mean Corpuscular HGB Conc 32.8 g/dl (32-36); Mean Corpuscular Hemoglobin 30.2 pg (26-34); Mean Platelet Volume 11.6 fl (7.4-10.4); Monocytes Absolute Auto 0.6 K/mm3 (0.1-0.6); Monocytes Percent Auto 10.4 % (2.6-8.5); Neutrophils Absolute Auto 2.7 K/mm3 (1.3-6.7); Neutrophils Percent Auto 50.5 % (45.5-73.1); Platelet Count Result 109 k/mm3 (150-375); Red Blood Count 4.37 M/mm3 (4.6-6.20); White Blood Count 5.4 K/mm3 (4.5-10.0)
[2022-09-24 13:06] LABS: Alanine Aminotransferase 35 U/L (6-50); Albumin Level 3.9 g/dL (3.5-5.1); Alkaline Phosphatase 82 U/L (38-126); Anion Gap 6 mmol/L (8-16); Aspartate Amino Transferase 49 U/L (17-59); Bilirubin,Total 0.8 mg/dL (0.2-1.3); Blood Urea Nitrogen 10 mg/dL (9-20); Calcium 9.3 mg/dL (8.4-10.2); Carbon Dioxide 27 mmol/L (22-30); Chloride 105 mmol/L (98-107); Cholesterol 132 mg/dL (0-200); Estimated Glomerular Filt Rate > 60; Glucose 90 mg/dL (65-110); HDL Direct 41 mg/dL; Potassium 3.8 mmol/L (3.4-5.0); Sodium 138 mmol/L (137-145); Triglycerides 83 mg/dL (<150)
[2022-09-24 13:08] LABS: INR 1.2; Prothrombin Time 15.8 Seconds (11.1-14.7)
[2022-09-24 13:17] LABS: LDL Cholesterol Direct 64 mg/dL
== END 2022-09-24 12:33 | disposition home or self-care (01) ==
PROVIDERS: PCP Nurse Practitioner Family; Visit Provider Nurse Practitioner Family
DX: Z13.220 Encounter for screening for lipoid disorders (principal); K74.60 Unspecified cirrhosis of liver; D69.6 Thrombocytopenia, unspecified; D61.818 Other pancytopenia
CPT/HCPCS: 36415; 80053; 80061; 85025; 85055; 85610

== ENCOUNTER 2022-12-18 00:31 | Day surgery (SDC) | payer OTHER, SELFPAY ==
[2022-12-09 08:53] VITALS: BMI 25.1
--- NOTE | 2022-12-18 07:24 | PM.HPGS ---
History of Present Illness History of Present Illness Consent: Risks, benefits, and alternatives have been discussed and questions answered. Patient agrees to proceed with procedure. Chief complaint: alcoholic cirrhosis of liver w/o ascites,neoplasm Narrative: Matthieu Fish is a 57 year old male He was recently diagnosed with cirrhosis and is hospitalized with bleeding from his mouth is thought to be due to recent dental work and also the [place] [address]. He subsequently has been seen by Hematology and now his platelet count is up to 109,000. CT scan showed cirrhosis with abdominal wall varices. He is in need of endoscopy to determine whether not he has esophageal varices and subsequent therapy. Review of Systems Review of Systems: All systems reviewed & are unremarkable except as noted in HPI and below PMFSH Past Medical History Medical History Erectile dysfunction Surgical History Surgical History History of tonsillectomy and adenoidectomy Social History Social History Social History: the patient lives with his and has 1 son. 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 Code status full code Smoking packs per day: 0.5 Smoking cigarettes per day: 10.0 Years smoked: 8 Smoking pack-years: 4.00 Smoking status: Former smoker Tobacco type: cigarettes Alcohol intake: former Alcohol use details: heavy drinking of beer and sometimes vodka prior to 07/25/2022 Substance use: never Substance use type: does not use Lack of Transportation: No Lack of Food: Never True Current Housing: I Have Housing Concerned About Future Housing: No Difficulty Paying Gas/Electric Bills: No Difficulty Paying for Meds: No Currently Unemployed: No Education: High School Diploma/GED Difficulty w/ Childcare or Family Care: No Living arrangements: with family Occupation/Education: occupation 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 Gender identity (if verbalized by the patient): Male Spiritual care concerns: No Meds Home Medications and Allergies Home Medications Medication Instructions Recorded Confirmed Type sildenafil 25 mg tablet 25 mg PO DAILY PRN erectil 11/09/22 12/18/22 Rx dysfuntion #30 tabs Allergies Allergy/AdvReac Type Severity Reaction Status Date / Time shellfish derived Allergy Itching Verified 12/18/22 09:06 Exam Const: General: alert Orientation/consciousness: patient oriented x3 Resp: Auscultation: clear to auscultation bilaterally Cardio: Rhythm: regular rhythm GI: GI Palp: Yes Soft to palpation and No Tenderness to palpation present (GI) Neuro: General: patient oriented x3 Assessment and Plan Assessment and plan (1) Cirrhosis of liver: Qualifiers: Ascites presence: without ascites Hepatic cirrhosis type: alcoholic cirrhosis Qualified Code(s): K70.30 - Alcoholic cirrhosis of liver without ascites Code(s): K74.60 - Unspecified cirrhosis of liver Status: Acute Assessment and Plan: EGD with possible biopsy or dilatation or banding of varices. (2) Varices of other sites: Code(s): I86.8 - Varicose veins of other specified sites Status: Acute (3) Colon cancer screening: Code(s): Z12.11 - Encounter for screening for malignant neoplasm of colon Status: Acute Assessment and Plan: Colonoscopy with possible biopsy or polypectomy or cautery or injection of substances.
[2022-12-18 09:07] VITALS: BP 130/63; PULSE 79; RESP 20; TEMP 36.4; O2SAT 100
[2022-12-18] MEDS: LACTATED RINGERS 1,000 ML 150 ML IV CONT (09:10)
--- NOTE | 2022-12-18 09:49 | WPDANESEPPF ---
Anes - Initial Pre Proc Eval Procedure: Operation Date: 12/18/22 10:30 Proposed Procedures p Esophagogastroduodenoscopy & Screening Colonoscopy - Anibal Gurrola MD Date/Time: 12/18/22 09:49 Surgeon: Anibal Gurrola MD Pre Op Diagnosis: alcoholic cirrhosis of liver w/o ascites,neoplasm Patient Data Age: 57 Gender: M Height: 1.85 m Weight: 81 kg Last Vital Signs Temp 97.6 F 12/18/22 09:07 Pulse 79 12/18/22 09:07 Resp 20 12/18/22 09:07 BP 130/63 12/18/22 09:07 Pulse Ox 100 12/18/22 09:07 O2 Del Method Room Air 12/18/22 09:07 Allergies Allergy/AdvReac Type Severity Reaction Status Date / Time shellfish derived Allergy Itching Verified 12/18/22 09:06 Home Medications Medication Instructions Recorded Confirmed Type sildenafil 25 mg tablet 25 mg PO DAILY PRN erectil 11/09/22 12/18/22 Rx dysfuntion #30 tabs Patient hx anesthesia problems: none Family hx anesthesia problems: none Results Review: All pre-operative results and documents have been reviewed as part of the pre-operative evaluation. [facility] Past Medical History Medical History Erectile dysfunction Surgical History Surgical History History of tonsillectomy and adenoidectomy Social History Social History Social History: the patient lives with his and has 1 son. 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 Code status full code Smoking packs per day: 0.5 Smoking cigarettes per day: 10.0 Years smoked: 8 Smoking pack-years: 4.00 Smoking status: Former smoker Tobacco type: cigarettes Alcohol intake: former Alcohol use details: heavy drinking of beer and sometimes vodka prior to 07/25/2022 Substance use: never Substance use type: does not use Lack of Transportation: No Lack of Food: Never True Current Housing: I Have Housing Concerned About Future Housing: No Difficulty Paying Gas/Electric Bills: No Difficulty Paying for Meds: No Currently Unemployed: No Education: High School Diploma/GED Difficulty w/ Childcare or Family Care: No Living arrangements: with family Occupation/Education: occupation 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 Informed Consent: The patient's anesthetic plan and its attendant risks and benefits were discussed with the patient/family/POA. Questions were solicited and answers provided to the satisfaction of the patient/family/POA.
[2022-12-18] MEDS: BENZOCAINE (*SP) 60 ML SPRAY CAN (HURRICAINE) 1 SPRAY MUCOUS MEM (10:09)
[2022-12-18] MEDS: SIMETHICONE ORAL SUSPENSION 20 MG/0.3 ML 30 ML BOTTLE 0.6 ML IRRIGATION (10:26)
--- NOTE | 2022-12-18 10:29 | SUR.OPER ---
EGD START 1011, END 1014 COLONOSCOPY START 1019, END 1029
[2022-12-18 10:33] VITALS: BP 102/64; PULSE 74; RESP 17; O2SAT 100
[2022-12-18 10:43] VITALS: BP 115/72; PULSE 72; RESP 18; O2SAT 100
[2022-12-18 10:53] VITALS: BP 118/78; PULSE 64; RESP 13; O2SAT 100
== END 2022-12-18 10:57 | disposition home or self-care (01) ==
PROVIDERS: PCP Family Medicine; Visit Provider Internal Medicine Gastroenterology
PROC: 0DJ08ZZ Inspection of Upper Intestinal Tract, Via Natural or Artificial Opening Endoscopic (ICD-10-PCS; CPT 43235; principal; 2022-12-18 10:30)
DX: Z12.11 Encounter for screening for malignant neoplasm of colon (principal); K21.00 Gastro-esophageal reflux disease with esophagitis, without bleeding; K22.70 Barrett's esophagus without dysplasia; K70.30 Alcoholic cirrhosis of liver without ascites; Z87.891 Personal history of nicotine dependence
CPT/HCPCS: 45378; 43239; 87081; 88305; J2704; J7120

== ENCOUNTER 2023-03-19 09:40 | Emergency (ER) | payer BC, SELFPAY ==
[2023-03-19 09:59] VITALS: BP 122/76; PULSE 89; RESP 16; TEMP 37.3; O2SAT 97
--- NOTE | 2023-03-19 10:41 | ED.URI ---
HPI - URI/Sore Throat General Chief Complaint: Upper Respiratory Infection Stated Complaint: Cough, Runny Nose, Headache, Sweat/Chills Time Seen by Provider: 03/19/23 10:30 Source: patient, RN notes reviewed and old records reviewed Mode of arrival: ambulatory Limitations: no limitations History of Present Illness HPI Narrative: 57year old male presents to express care with complaints of hacking cough with runny nose for the past 10 days but for the past 2 days ago increased body aches,headache, cough, and chills, with no known fevers.Patient reports that he has been taking Theraflu for his symptoms. Patient reports no know ill contacts but does work around public. MD elicited complaint: fever (chills), cough, rhinorrhea, nasal congestion and other (body aches) Onset (ago): day(s) (initial symptoms 10 days ago past 2 body aches increased cough and congestion) Consistency: progressively worsening Severity: moderate Able to tolerate fluids by mouth: Yes Treatments prior to arrival: other (Theraflu) Related Data Allergies Allergy/AdvReac Type Severity Reaction Status Date / Time shellfish derived AdvReac Mild Itching Verified 03/19/23 10:13 Review of Systems Review of Systems: CONSTITUTIONAL:Reports malaise, chills, sweats, or fever. EYES: Denies visual changes, redness, or discharge. ENT: Reports rhinorrhea, congestion, sinus pressure, no otalgia and no sore throat. CARDIOVASCULAR: Denies chest pain, palpitations, or edema. RESPIRATORY: Reports cough.? Denies dyspnea. GASTROINTESTINAL: Denies abdominal pain,some nausea, no vomiting, diarrhea SKIN: Denies rash or itching. MUSCULOSKELETAL: Reports myalgia. NEUROLOGIC:Reports headache. All systems reviewed & are unremarkable except as noted in HPI and below PMFSH Past Medical History Medical History Cirrhosis of liver Erectile dysfunction GERD (gastroesophageal reflux disease) Pancytopenia 07/2022 received platelets Surgical History Surgical History History of tonsillectomy and adenoidectomy Hx of colonoscopy Hx of endoscopy Family History Family History Father Cerebrovascular accident Social History Social History Social History: the patient lives with his and has 1 son. 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 His Marion is a durable power united [place] attorney for healthcare. Code status full code Smoking packs per day: 0.5 Smoking cigarettes per day: 10.0 Years smoked: 8 Smoking pack-years: 4.00 Smoking status: Former smoker Tobacco type: cigarettes Alcohol intake: former Alcohol use details: heavy drinking of beer and sometimes vodka prior to 07/25/2022 Substance use: never Substance use type: does not use Lack of Transportation: No Lack of Food: Never True Current Housing: I Have Housing Concerned About Future Housing: No Difficulty Paying Gas/Electric Bills: No Difficulty Paying for Meds: No Currently Unemployed: No Education: High School Diploma/GED Difficulty w/ Childcare or Family Care: No Living arrangements: with family Occupation/Education: occupation Additional occupation/education comments: [employer]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 There is no relevant family history pertinent to the presenting complaint Exam Narrative: GENERAL:Illl-appearing, well-nourished, and in no acute distress. HEAD: Normocephalic EYES: PERRLA, conjunctivae clear ENT: Nares clear, turbinates edematous and erythematous, yellow discharge. Mucous membranes moist. TM pearly goode with dull light reflex bilaterally; no tragal
== END 2023-03-19 11:22 | disposition home or self-care (01) ==
PROVIDERS: Emergency Provider Registered Nurse; PCP Nurse Practitioner Family
DX: U07.1 COVID-19 (principal); J32.9 Chronic sinusitis, unspecified; Z87.891 Personal history of nicotine dependence; K74.60 Unspecified cirrhosis of liver; K21.9 Gastro-esophageal reflux disease without esophagitis
CPT/HCPCS: 87426; 87804; 99213; G0463

== ENCOUNTER 2023-04-12 13:03 | Outpatient (CLI) | payer BC, SELFPAY ==
--- NOTE | ~2023-04-12 | XR_ITS ---
EXAMINATION:XR_[id number] DATE: 04/12/2023 13:28 INDICATION: Cervical radiculopathy TECHNIQUE: AP, lateral, and odontoid views of the cervical spine are provided. COMPARISON: None FINDINGS: Alignment is normal. The odontoid process is intact. No fracture is identified. There is mo derate loss of intervertebral disc space height at C6-7. The vertebral body heights are maintained. T here is severe facet and uncovertebral joint osteoarthritis at C6-7. Prevertebral soft tissues are no rmal. IMPRESSION: 1. Severe cervical spondylosis at C6-7 without acute findings. Reviewed, dictated and finalized at location L. E OPERATOR
[2023-04-12 13:25] LABS: Eosinophils Absolute Auto 0.2 K/mm3 (0-0.3); Eosinophils Percent Auto 3.6 % (0-4.4); Hematocrit 40.2 % (42.0-52.0); Immature Granulocyte Absolute 0.01 K/mm3 (0.00-0.031); Immature Granulocyte Percent A 0.2 % (0-0.5); Immature Platelet Fraction Pct 6.1 % (0.9-11.2); Lymphocytes Absolute Auto 1.74 K/mm3 (0.9-3.2); Lymphocytes Percent Auto 42.3 % (18.3-44.2); Mean Corpuscular HGB Conc 32.3 g/dl (32-36); Mean Corpuscular Hemoglobin 27.9 pg (26-34); Mean Corpuscular Volume 86.3 fl (80-100); Mean Platelet Volume 10.5 fl (7.4-10.4); Monocytes Absolute Auto 0.4 K/mm3 (0.1-0.6); Monocytes Percent Auto 10.2 % (2.6-8.5); Neutrophils Absolute Auto 1.8 K/mm3 (1.3-6.7); Neutrophils Percent Auto 42.7 % (45.5-73.1); Platelet Count Result 98 k/mm3 (150-375); Red Blood Count 4.66 M/mm3 (4.6-6.20); Red Cell Distribution Width 13.6 % (11.5-14.5); White Blood Count 4.1 K/mm3 (4.5-10.0)
[2023-04-12 13:38] LABS: INR 1.2; Prothrombin Time 15.6 Seconds (11.1-14.7)
[2023-04-12 13:45] LABS: Alanine Aminotransferase 25 U/L (6-50); Albumin Level 4.3 g/dL (3.5-5.1); Alkaline Phosphatase 84 U/L (38-126); Anion Gap 6 mmol/L (8-16); Aspartate Amino Transferase 34 U/L (17-59); Bilirubin,Total 0.7 mg/dL (0.2-1.3); Blood Urea Nitrogen 12 mg/dL (9-20); Calcium 9.3 mg/dL (8.4-10.2); Carbon Dioxide 28 mmol/L (22-30); Chloride 104 mmol/L (98-107); Cholesterol 145 mg/dL (0-200); Estimated Glomerular Filt Rate > 60; Glucose 94 mg/dL (65-110); HDL Direct 75 mg/dL; Potassium 3.8 mmol/L (3.4-5.0); Sodium 138 mmol/L (137-145); Triglycerides 89 mg/dL (<150)
[2023-04-12 13:58] LABS: LDL Cholesterol Direct 64 mg/dL
[2023-04-12 14:17] LABS: Iron 107 ug/dL (49-181)
[2023-04-12 14:51] LABS: Percent Iron Saturation 28 % (20-50)
[2023-04-15 14:30] LABS: GGT 27 U/L (3-85)
== END 2023-04-12 13:04 | disposition home or self-care (01) ==
LOC: ANHLAB 13:06
PROVIDERS: PCP Nurse Practitioner Family; Visit Provider Nurse Practitioner Family
DX: M43.02 Spondylolysis, cervical region (principal); D64.9 Anemia, unspecified; D61.818 Other pancytopenia; F10.10 Alcohol abuse, uncomplicated; K74.60 Unspecified cirrhosis of liver; D69.6 Thrombocytopenia, unspecified; R74.01 Elevation of levels of liver transaminase levels; Z13.220 Encounter for screening for lipoid disorders
CPT/HCPCS: 36415; 72040; 80053; 80061; 82977; 83540; 83550; 85025; 85055; 85610

== ENCOUNTER 2023-05-04 12:06 | Outpatient (CLI) | payer BC, SELFPAY ==
[2023-05-04 12:38] LABS: Hematocrit 42.1 % (42.0-52.0); Hemoglobin 13.8 g/dL (14.0-18.0); Immature Platelet Fraction Pct 8.1 % (0.9-11.2); Mean Corpuscular HGB Conc 32.8 g/dl (32-36); Mean Corpuscular Hemoglobin 28.6 pg (26-34); Mean Corpuscular Volume 87.3 fl (80-100); Platelet Count Result 103 k/mm3 (150-375); Red Blood Count 4.82 M/mm3 (4.6-6.20); Red Cell Distribution Width 13.2 % (11.5-14.5); White Blood Count 4.8 K/mm3 (4.5-10.0)
[2023-05-04 12:39] LABS: Basophils Absolute Auto 0.1 K/mm3 (0.0-0.1); Basophils Percent Auto 1.2 % (0.2-1.2); Eosinophils Absolute Auto 0.2 K/mm3 (0-0.3); Eosinophils Percent Auto 3.7 % (0-4.4); Immature Granulocyte Absolute 0.01 K/mm3 (0.00-0.031); Immature Granulocyte Percent A 0.2 % (0-0.5); Lymphocytes Absolute Auto 1.84 K/mm3 (0.9-3.2); Mean Platelet Volume 11.2 fl (7.4-10.4); Monocytes Absolute Auto 0.4 K/mm3 (0.1-0.6); Monocytes Percent Auto 8.7 % (2.6-8.5); Neutrophils Absolute Auto 2.3 K/mm3 (1.3-6.7); Neutrophils Percent Auto 48.2 % (45.5-73.1)
[2023-05-04 16:34] LABS: Iron 155 ug/dL (49-181)
[2023-05-04 16:41] LABS: Alanine Aminotransferase 28 U/L (6-50); Albumin Level 4.5 g/dL (3.5-5.1); Alkaline Phosphatase 84 U/L (38-126); Anion Gap 9 mmol/L (8-16); Aspartate Amino Transferase 42 U/L (17-59); Bilirubin,Total 0.8 mg/dL (0.2-1.3); Blood Urea Nitrogen 12 mg/dL (9-20); Calcium 9.6 mg/dL (8.4-10.2); Carbon Dioxide 25 mmol/L (22-30); Chloride 106 mmol/L (98-107); Estimated Glomerular Filt Rate > 60; Glucose 75 mg/dL (65-110); Lactate Dehydrogenase 178 U/L (120-246); Potassium 4.3 mmol/L (3.4-5.0); Sodium 140 mmol/L (137-145)
[2023-05-04 16:44] LABS: Percent Iron Saturation 41 % (20-50)
[2023-05-04 17:49] LABS: Folic Acid 7.7 ng/mL (2.76->20)
[2023-05-06 21:52] LABS: Methylmalonic Acid 220 nmol/L (87-318)
[2023-05-08 13:57] LABS: Soluble Transferrin Receptor 0.85 mg/L (0.76-1.76)
[2023-05-11 23:17] LABS: Platelet Antibody, Direct NEGATIVE (NEGATIVE)
== END 2023-05-04 12:07 | disposition home or self-care (01) ==
PROVIDERS: Nurse Practitioner Family; PCP Nurse Practitioner Family; Visit Provider Internal Medicine Hematology & Oncology
DX: D69.6 Thrombocytopenia, unspecified (principal); D64.9 Anemia, unspecified
CPT/HCPCS: 36415; 80053; 82607; 82728; 82746; 83540; 83550; 83615; 83921; 84238; 85025; 85055; 86023; 86038

== ENCOUNTER 2023-06-21 03:51 | Day surgery (SDC) | payer BC, SELFPAY ==
[2023-06-15 12:38] VITALS: BMI 24.7
--- NOTE | 2023-06-15 12:43 | PC.NURSE ---
Report to the Outpatient Waiting Room, entrance under the green pavilion located off [facility], at time 1300 on date 06/21/23. Planned Procedure Time: 1400. Time changes happen often and if your time is changed the preop area will call you the afternoon before. - You and your visitor will be asked to self-screen and do not enter if you have any COVID symptoms. - A mask is optional within the hospital at this time. Patients may have LIGHT BREAKFAST/LUNCH Take the following medications with a SIP of water the morning of surgery: PRESCRIBED DO NOT STOP ANY OF YOUR OTHER PRESCRIPTION MEDICATIONS PRIOR TO SURGERY ?EXCEPT THE FOLLOWING Medications to discontinue per physician: N/A Date to take last dose: N/A Please no make-up, nail gambian, hairspray, perfume, deodorant, or body powder the day of surgery. No jewelry (including any body piercings) or valuables the day of surgery, leave them at home. Please take a shower or bath the night before, or the morning of, surgery with an antibacterial soap. Wear comfortable, loose fitting clothing. - Jewelry must be removed prior to entering the operating room. Rings and piercings that are not removed may be cut off. - The hospital will not accept responsibility for valuables. - Please leave all valuables, including medications, at home the day of surgery. YOU MAY DRIVE YOURSELF HOME AFTER SURGERY. Follow any additional instructions given to you from your surgeon. If you or anyone in your household have experienced Covid symptoms in the past week, please notify your surgeon or the nurse liaison at the phone number below for possible testing. Telephone instructions given to AMADO LAM and asked if any additional questions and then verbalized understanding. Patient advised to call surgeon office or pre surgery nurse liaison [phone] if any additional questions.
[2023-06-21] VITALS (7 sets, daily range): BP systolic 121–160; BP diastolic 64–76; PULSE 60–80; RESP 14–16; TEMP 36.7; O2SAT 99–100
--- NOTE | 2023-06-21 13:41 | WPDHPUPDATE1 ---
History and Physical Update Update Date/Time: 06/21/23 13:41 History and Physical has been reviewed, including an updated exam of the patient. There are NO changes in the patient's condition. Risks, benefits, and alternatives have been discussed and questions answered. Patient agrees to proceed with procedure.
[2023-06-21] MEDS: LIDO 1%/EPINEPHRINE 1:100,000 50 ML VIAL 10 ML INFILTRATE (14:09)
[2023-06-21] MEDS: BUPivacaine HCL 0.5% 10 ML AMP INFILTRATE (14:09)
--- NOTE | 2023-06-21 14:17 | SUR.OPER ---
Left lower back cyst measurements 3.5x2x1
--- NOTE | 2023-06-21 16:00 | P.OP_ITS ---
Procedure Note - Detailed Date of Procedure 06/21/23 Pre-op Diagnosis left lower back cyst Post-op Diagnosis Same Procedure Performed Excision left lower back option inclusion cyst with 6cm intermediate layered wound closure Surgeon Massimo Tucker MD Anesthesia Local Indications Patient is a 57-year-old gentleman who has had multiple infections of a ruptured inclusion cyst in his left lower back region. He presents now for excision of the cyst. Findings The cyst was [id number]. The length of the intermediate layered wound closure was 6cm. Description of Procedure After informed consent was obtained patient brought to the operating room was placed prone on operating table. The area the left lower back was then prepped and draped usual sterile fashion. A time-out was then performed correctly identifying the patient as well as procedure to be performed. No perioperative IV antibiotics were given as no IV was started. Site marking was confirmed. I then anesthetized the area around the cyst utilizing 1% lidocaine mixed with 0.5% Marcaine 50 50 mixture with epinephrine. Once adequate anesthesia was achieved I then made a transverse elliptical incisions the dermis skin with a scalpel. Dissection carried deeply down through the dermis skin with a scalpel electrocautery was used to completely excise out the ellipse of tissue with the attached overlying skin containing the whole wall of the ruptured inclusion cyst. The cyst measured approximately 3.0x2b6os and the specimen was passed off table sent to pathology for examination. I then performed a 6cm intermediate layered wound closure. Interrupted 2-0 Vicryl sutures were placed in 2 layers in the subcutaneous tissues. This is then followed by a layer of interrupted 3- 0 Vicryl sutures in the deep dermal layer. The skin edges were then approximated utilizing a running subcuticular 4 Monocryl suture. The incision was then cleaned and then skin glue was applied. The patient tolerated the procedure well no complications. All sponges, needles, and instrument counts were correct at the end procedure. EBL was _5__cc. The patient was awakened and taken to recovery in stable and satisfactory condition. Implants None Estimated Blood Loss 5 Drains No Packing No Pathology Yes ( cyst sent to pathology) Complications No immediate complications Condition Stable Disposition PACU [facility] Billing Surgery - Charge Forward: Surgery Billing
== END 2023-06-21 14:50 | disposition home or self-care (01) ==
PROVIDERS: PCP Nurse Practitioner Family; Visit Provider Surgery
PROC: (CPT 11406; principal; 2023-06-21 14:00)
DX: L92.3 Foreign body granuloma of the skin and subcutaneous tissue (principal); K74.60 Unspecified cirrhosis of liver; N52.9 Male erectile dysfunction, unspecified; K21.9 Gastro-esophageal reflux disease without esophagitis; Z98.890 Other specified postprocedural states; Z87.891 Personal history of nicotine dependence
CPT/HCPCS: 11406; 12032; 88305

== ENCOUNTER 2023-12-06 10:57 | Outpatient (CLI) | payer BC, SELFPAY ==
[2023-12-06 11:22] LABS: Basophils Percent Auto 0.8 % (0.2-1.2); Eosinophils Absolute Auto 0.2 K/mm3 (0-0.3); Eosinophils Percent Auto 3.1 % (0-4.4); Hematocrit 43.2 % (42.0-52.0); Hemoglobin 14.4 g/dL (14.0-18.0); Immature Granulocyte Absolute 0.01 K/mm3 (0.00-0.031); Immature Granulocyte Percent A 0.2 % (0-0.5); Immature Platelet Fraction Pct 5.1 % (0.9-11.2); Lymphocytes Percent Auto 36.8 % (18.3-44.2); Mean Corpuscular HGB Conc 33.3 g/dl (32-36); Mean Corpuscular Volume 86.9 fl (80-100); Mean Platelet Volume 10.8 fl (7.4-10.4); Monocytes Absolute Auto 0.5 K/mm3 (0.1-0.6); Monocytes Percent Auto 10.4 % (2.6-8.5); Neutrophils Absolute Auto 2.5 K/mm3 (1.3-6.7); Neutrophils Percent Auto 48.7 % (45.5-73.1); Platelet Count Result 114 k/mm3 (150-375); Red Blood Count 4.97 M/mm3 (4.6-6.20); Red Cell Distribution Width 13.2 % (11.5-14.5); White Blood Count 5.2 K/mm3 (4.5-10.0)
[2023-12-06 11:32] LABS: Alanine Aminotransferase 21 U/L (6-50); Albumin Level 4.4 g/dL (3.5-5.1); Alkaline Phosphatase 56 U/L (38-126); Anion Gap 7 mmol/L (4-12); Aspartate Amino Transferase 34 U/L (17-59); Bilirubin,Total 0.8 mg/dL (0.2-1.3); Blood Urea Nitrogen 14 mg/dL (9-20); Calcium 9.6 mg/dL (8.4-10.2); Carbon Dioxide 29 mmol/L (22-30); Chloride 103 mmol/L (98-107); Cholesterol 157 mg/dL (0-200); Estimated Glomerular Filt Rate > 60; Glucose 81 mg/dL (65-110); HDL Direct 62 mg/dL; Sodium 139 mmol/L (137-145); Triglycerides 84 mg/dL (<150)
[2023-12-06 11:42] LABS: LDL Cholesterol Direct 69 mg/dL
[2023-12-06 12:02] LABS: Prostate Specific Antigen 1.1 ng/mL (< OR = 4.0)
== END 2023-12-06 10:58 | disposition home or self-care (01) ==
LOC: ANHLAB 11:01
PROVIDERS: PCP Nurse Practitioner Family; Visit Provider Nurse Practitioner Family
DX: K74.60 Unspecified cirrhosis of liver (principal); D61.818 Other pancytopenia; D69.6 Thrombocytopenia, unspecified; Z12.5 Encounter for screening for malignant neoplasm of prostate; R74.01 Elevation of levels of liver transaminase levels
CPT/HCPCS: 36415; 80053; 80061; 84153; 85025; 85055; G0103

== ENCOUNTER 2024-03-06 14:43 | Outpatient (CLI) | payer BC, SELFPAY ==
--- NOTE | ~2024-03-06 | XR_ITS ---
[id number] Ordering provider: Bita Kelly APRN History: . M79.671 - Pain in right foot X 2-3 MOS. NKI . Comparison: None. FINDINGS: BONES: No acute fracture or dislocation. JOINT SPACES: Narrowing of the distal interphalangeal joints. Osteoarthritic changes of the first met atarsophalangeal joint. No tarsal coalition. SOFT TISSUES: Normal. IMPRESSION: No acute osseous abnormality of the right foot. Polyarticular osteoarthritic changes. Reviewed, dictated and finalized at location A. FIC EXPERT
== END 2024-03-06 14:44 | disposition home or self-care (01) ==
LOC: ANHIMG 14:51
PROVIDERS: PCP Nurse Practitioner Family; Visit Provider Nurse Practitioner Family
DX: M79.671 Pain in right foot (principal)
CPT/HCPCS: 73630

== ENCOUNTER 2024-04-10 09:39 | Outpatient (CLI) | payer BC, SELFPAY ==
[2024-04-10 10:12] LABS: Basophils Percent Auto 0.8 % (0.2-1.2); Eosinophils Absolute Auto 0.2 K/mm3 (0-0.3); Eosinophils Percent Auto 3.1 % (0-4.4); Hemoglobin 14.3 g/dL (14.0-18.0); Immature Granulocyte Absolute 0.01 K/mm3 (0.00-0.031); Immature Granulocyte Percent A 0.2 % (0-0.5); Immature Platelet Fraction Pct 5.3 % (0.9-11.2); Lymphocytes Absolute Auto 1.88 K/mm3 (0.9-3.2); Lymphocytes Percent Auto 36.4 % (18.3-44.2); Mean Corpuscular HGB Conc 33.3 g/dl (32-36); Mean Corpuscular Hemoglobin 28.7 pg (26-34); Mean Corpuscular Volume 86.2 fl (80-100); Mean Platelet Volume 10.9 fl (7.4-10.4); Monocytes Absolute Auto 0.5 K/mm3 (0.1-0.6); Monocytes Percent Auto 9.5 % (2.6-8.5); Neutrophils Absolute Auto 2.6 K/mm3 (1.3-6.7); Platelet Count Result 119 k/mm3 (150-375); Red Blood Count 4.99 M/mm3 (4.6-6.20); Red Cell Distribution Width 12.9 % (11.5-14.5); White Blood Count 5.2 K/mm3 (4.5-10.0)
[2024-04-10 10:26] LABS: Alanine Aminotransferase 26 U/L (6-50); Albumin Level 4.4 g/dL (3.5-5.1); Alkaline Phosphatase 70 U/L (38-126); Anion Gap 7 mmol/L (4-12); Aspartate Amino Transferase 32 U/L (17-59); Bilirubin,Total 0.7 mg/dL (0.2-1.3); Blood Urea Nitrogen 14 mg/dL (9-20); Calcium 9.7 mg/dL (8.4-10.2); Carbon Dioxide 28 mmol/L (22-30); Chloride 103 mmol/L (98-107); Cholesterol 151 mg/dL (0-200); Estimated Glomerular Filt Rate > 60; Glucose 79 mg/dL (65-110); HDL Direct 66 mg/dL; Potassium 4.3 mmol/L (3.4-5.0); Sodium 138 mmol/L (137-145); Triglycerides 79 mg/dL (<150)
[2024-04-10 10:37] LABS: LDL Cholesterol Direct 72 mg/dL
--- OUTSIDE RECORDS SUMMARY | 2024-04-10 12:25 | XMS_ITS | Referral Summary ---
Author Organization [facility] Address [address] [place] [id number] Care Team Providers Care Culinary Chef Name Role Phone No, Physician Primary Care Provider [phone] Allergies No known active allergies Medications sildenafiL (VIAGRA) 25 mg tablet Take 1 tablet (25 mg total) by mouth daily as needed for erectile dysfunction Active Active Problems No known active problems Social History Tobacco Use Types Packs/Day Years Used Date Smoking Tobacco: Former Cigarettes Smokeless Tobacco: Never Tobacco Cessation:Counseling Given: Not Answered Personal Safety Answer Date Recorded Getting School Help Needed Not on file 04/24 Sex and Gender Information Value Date Recorded Sex Assigned at Not on file Legal Sex Male 3:34 PM CDT Gender Identity Not on file Sexual Orientation Not on file Last Filed Vital Signs Vital Sign Reading Time Taken Comments Blood Pressure 98/59 10/30/2022 10:51 AM CDT Pulse 74 10/30/2022 10:51 AM CDT Temperature 36.1 C (97 F) 10/30/2022 10:51 AM CDT Respiratory Rate - - Oxygen Saturation 100% 10/30/2022 10:51 AM CDT Inhaled Oxygen Concentration - - Weight 88.7 kg (195 lb 9.6 oz) 10/30/2022 10:51 AM CDT Height 178.5 cm (5' 10.28 ) 10/30/2022 10:51 AM CDT Body Mass Index 27.85 10/30/2022 10:51 AM CDT Plan of Treatment Not on file Care Teams Culinary Chef Relationship Specialty Start Date End Date No, Physician PCP - General 09/01/22
--- OUTSIDE RECORDS SUMMARY | 2024-04-10 12:25 | XMS_ITS | Clinical Summary ---
Author Organization [facility] Address [address] [place] [id number] Care Team Providers Care Inseam Trimmer Name Role Phone No, Physician Primary Care Provider [phone] Allergies No known active allergies Medications sildenafiL [...] on file Sexual Orientation Not on file Obstetrics History Last Filed Vital Signs Vital Sign Reading [...] 10/30/2022 10:51 AM CDT Plan of Treatment Health Maintenance Due Date Last Done Comments Colon Cancer Screening-Colonoscopy 1965 Depression Screening 1965 Hepatitis C Screening 1965 Prostate Cancer Screening-PSA 1965 DTaP/Tdap/Td Vaccine (1 - Tdap) 1976 Hepatitis B Screening 11/19/1983 Regular Well Visit/Exam 18-64 11/19/1983 Zoster Vaccine (1 of 2) 11/19/2015 Influenza Vaccine (#1) 2023 Pneumococcal vaccine <65 Aged Out No longer eligible based on patient's age to complete this topic Care Teams Inseam Trimmer Relationship Specialty Start Date End Date No, Physician PCP - General 09/01/22
--- OUTSIDE RECORDS SUMMARY | 2024-04-10 12:25 | XMS_ITS | Clinical Summary ---
Author Organization [facility] Balwinder fitzgerald [facility] Address [address] [place] [address] Care Team Providers Care Evs Tech Name Role Phone Hoang Nguyen MD Primary Care Provider [phone] Allergies No known active allergies Medications sildenafiL (VIAGRA) 25 mg tablet Take 25 mg by mouth. Active Active Problems No known active problems Encounters Date Type Department Care Team Description 04/04/2024 External Device Data [facility]CTION Provider, Abstract 02/29/2024 External Device Data [facility] Provider, Abstract from Last 3 Months Family History Medical History Relation Name Comments No Known Problems Brother No Known Problems Child No Known Problems Father No Known Problems Mother Relation Name Status Comments Brother Alive Child Alive Father Alive Mother Alive Social History Tobacco Use Types Packs/Day Years Used Date Smoking Tobacco: Former Cigarettes 0.5 20 Smokeless Tobacco: Never Tobacco Cessation:Counseling Given: Not Answered Alcohol Use Standard Drinks/Week Comments Not Currently 0 (1 standard drink = 0.6 oz pur e alcohol) 07/23/22 stopped drinking Sex and Gender Information Value Date Recorded Sex Assigned at Not on file Legal Sex Male 11:53 AM CDT Gender Identity Not on file Sexual Orientation Not on file Last Filed Vital Signs Vital Sign Reading Time Taken Comments Blood Pressure 125/69 05/04/2023 11:29 AM CDT Pulse 66 05/04/2023 11:29 AM CDT Temperature - - Respiratory Rate 15 05/04/2023 11:29 AM CDT Oxygen Saturation 98% 05/04/2023 11:29 AM CDT Inhaled Oxygen Concentration - - Weight 85.9 kg (189 lb 6.4 oz) 05/04/2023 11:29 AM CDT Height 185.4 cm (6' 1 ) 05/04/2023 11:29 AM CDT Body Mass Index 24.99 05/04/2023 11:29 AM CDT Plan of Treatment Health Maintenance Due Date Last Done Comments PNEUMOCOCCAL VACCINE 0-64 YEARS (1 of 2 - PCV) 972 DTAP/TDAP/TD VACCINES (1 - Tdap) 1984 HEPATITIS B VACCINES (1 of 3 - 19+ 3-dose series) 10/24 COLORECTAL SCREENING 2010 Colorectal Cancer Screening 2010 FIT-DNA Q 3 years 2010 FIT/FOBT Q 1 year 2010 Flex Sig/CT Colonography Q 5 years 2010 ZOSTER VACCINE (1 of 2) 11/19/2015 INFLUENZA VACCINE (#1) 2023 Insurance [place] [id number] [facility] [place] [employer] Care Teams Evs Tech Relationship Specialty Start Date End Date Hoang Nguyen MD [address] [place] [address] PCP - General Family Practice 04/22/23
== END 2024-04-10 09:40 | disposition home or self-care (01) ==
LOC: ANHLAB 09:41
PROVIDERS: PCP Nurse Practitioner Family; Visit Provider Nurse Practitioner Family
DX: K74.60 Unspecified cirrhosis of liver (principal); D61.818 Other pancytopenia; D69.6 Thrombocytopenia, unspecified
CPT/HCPCS: 36415; 80053; 80061; 85025; 85055

== ENCOUNTER 2024-05-19 09:39 | Emergency (ER) | payer SELFPAY ==
--- NOTE | 2024-05-19 09:41 | ED_ITS ---
HPI - Allergic Reaction General Chief complaint: Skin/Abscess/Foreign Body Stated complaint: poss allergic reaction Time Seen by Provider: 05/19/24 09:40 Source: patient Mode of arrival: ambulatory Limitations: no limitations History of Present Illness HPI narrative: Matthieu is a 58-year-old male patient presenting to the clinic today with complaints of possible poison radha to his right arm and right chest wall. He reports that he has had this rash for 10 days and it is getting worse. States that the rash is very itchy and he has been scratching at it. Has a spot on the right forearm and to the right chest wall with some yellow crusting. Denies any pain or fever. Related Data Allergies Allergy/AdvReac Type Severity Reaction Status Date / Time avocado Allergy Mild Itching Verified 05/19/24 10:04 shellfish derived Allergy Mild Itching Verified 05/19/24 10:04 Review of Systems Review of Systems: Pertinent positives per HPI. Patient denies any fever, chills, headache, visual changes, dizziness, cough, shortness of breath, chest pain, palpitations, nausea, vomiting, diarrhea, constipation, abdominal pain, or any urinary issues. [facility] Past Medical History Medical History GERD (gastroesophageal reflux disease) Pancytopenia 07/2022 received platelets Cirrhosis of liver Erectile dysfunction Surgical History Surgical History H/O excision of mass 06/21/23 Excision left lower back option inclusion cyst with 6cm intermediate layered wound closure Hx of colonoscopy Hx of endoscopy History of tonsillectomy and adenoidectomy Family History Family History Father Cerebrovascular accident Social History Social History Social History: the patient lives with his and has 1 son. 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 His Marion is a durable power deputy prosecuting attorney for healthcare. Code status full code Smoking packs per day: 0.5 Smoking cigarettes per day: 10.0 Years smoked: 15 Smoking pack-years: 7.50 Smoking status: Former smoker Tobacco type: cigarettes Smoking end date: 02/22/19 Alcohol intake: former Alcohol use details: heavy drinking of beer and sometimes vodka prior to 07/25/2022 Substance use: never Substance use type: does not use Do You Feel Safe in your Home?: Yes Lack of Transportation: No Lack of Food: Never True Current Housing: I Have Housing Concerned About Future Housing: No Difficulty Paying Gas/Electric Bills: No Difficulty Paying for Meds: No Currently Unemployed: No Education: High School Diploma/GED Difficulty w/ Childcare or Family Care: No Living arrangements: with family Occupation/Education: occupation 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 There is no relevant family history pertinent to the patient complaint. Exam Narrative: General: Well-developed, well nourished, in no apparent distress Head: Normocephalic, atraumatic Eyes: Pupils equally round and reactive to light bilaterally, EOM intact, sclera and conjunctive clear, no discharge, lids normal Ears: TMs intact and clear, ear canals clear, no drainage, grossly hearing bandar l. Nose: Nares patent, no discharge, no inflammation, no sinus tenderness. Mouth: Oral pharynx without lesions or masses, good dentition, MMM. Neck: Supple, trachea midline, no enlargement of anterior or posterior cervical nodes, no thyroid masses or goiter palpable. Cardio: Regular rate and rhythm, s1 and s2 normal, no murmur appreciated. Resp: Clear to auscultation bilaterally, no rhonchi, rales, wheezing or rubs Integumentary: [place], warm, and dry, intact without lesion, red, raised, itchy scaly appearing rash to the right forearm and right chest wall with yellow crusting, nonpainful to palpation Course Course Emergency Course: Portions of this record may have been created with voice recognition software. Level of Care: Express Care Visit Vital Signs Vital signs: Vital Signs Temperature 36.2 C L 05/19/24 09:50 Pulse Rate 67 05/19/24 09:50 Respiratory Rate 20 05/19/24 09:50 Blood Pressure 144/72 H 05/19/24 09:50 Pulse Oximetry 100 05/19/24 09:50 Oxygen Delivery Room Air 05/19/24 09:50 Temperature 36.2 C L 05/19/24 09:50 Pulse Rate 67 05/19/24 09:50 Respiratory Rate 20 05/19/24 09:50 Blood Pressure 144/72 H 05/19/24 09:50 Pulse Oximetry 100 05/19/24 09:50 Oxygen Delivery Room Air 05/19/24 09:50 Vital signs reviewed MDM - Allergic Reaction MDM Narrative Medical decision making narrative: At the time of visit patient is resting comfortably on the exam table. Patient appears to be nontoxic. Plan: I suspect patient has poison radha dermatitis. Prescription for 10 day course of prednisone, triamcinolone cream, and doxycycline was sent to the pharmacy as there may be possibility of a secondary infection since patient has been scratching and there are some yellow crusting. Supportive measures were discussed with the patient and they voiced understanding discharge instructions and agrees to treatment plan. Return precautions reviewed Differential Diagnosis Differential diagnosis: Likely anaphylaxis, allergic reaction, angioedema, contact dermatitis, adverse reaction to drug, viral enanthem and urticaria Discharge Plan Discharge Clinical Impression: Poison radha dermatitis Patient Disposition: Home, Self-Care Condition: Stable Instructions: Antibiotic Form, Poison Radha (ED) Additional Instructions: Apply triamcinolone cream as directed Take prednisone and doxycycline as directed Avoid hot showers Avoid scratching as this can cause a secondary infection May take benadryl 25-50mg every 6 hours as needed for itching. Follow up with your PCP in 3-5 days if symptoms persist or sooner if they worsen Go to the Emergency Room if symptoms worsen- fever, rash spreading with treatme nt, shortness of breath, tongue swelling, drooling, or chest pain Patient Language: Bulgarian Prescriptions: New prednisone 10 mg tablet 10 mg PO DAILY Qty: 30 0RF Rx Instructions: 60mg po daily on day 1, 40mg po daily on days 2-4, 30mg po daily on days 5-6, 20mg po daily on days 7-8, 10mg po daily on days 9-10 doxycycline monohydrate 100 mg capsule 100 mg PO BID 7 Days Qty: 14 0RF triamcinolone acetonide 0.1 % cream 1 applic topical BID 7 Days Qty: 30 0RF No Action meloxicam 15 mg tablet 15 mg PO DAILY Qty: 90 1RF Follow-up/Referrals: Bita Kelly APRN [Primary Care Provider] - Time of Disposition: 10:07 Quality NIHSS Nursing Documentation ED NIHSS nursing documentation: reviewed/agree
[2024-05-19 09:50] VITALS: BP 144/72; PULSE 67; RESP 20; TEMP 36.2; O2SAT 100
--- OUTSIDE RECORDS SUMMARY | 2024-05-19 10:16 | XMS_ITS | Data Portability ---
Author Organization [place] - [facility], Main Office Address [address] [place] [address] Assessment Encounter Date Assessment Date Assessment LastModified by Organization Details LastModified Time 12/28/2021 12/28/2021 56 yo male presents as a new patient via TM for medication refill for erectile dysfunction. - Refill sildenafil 25mg QD PRN for 30 days (verified Rx dose and date on medication vial) - Education provided on medication administration and potential SE. - Call 911 or go to ER if having prolonged erection, CP, palpitations, dizziness, lighteadedness, and hypotension. - Needs to establish PCP. - RTC as needed. Pt verbalized understanding of instructions and plan. MARCIANO Carpio [email or web address] Not available 12/28/2021 23:13:51 02/09/2022 02/09/2022 56 yo male presents as a new patient via TM for medication refill for erectile dysfunction. Erectile Dysfunction - Refill sildenafil 25mg QD PRN for 30 days (verified Rx dose and date on medication vial) - Education provided on medication administration and potential SE. - Call 911 or go to ER if having prolonged erection, CP, palpitations, dizziness, lighteadedness, and hypotension. - States that he established PCP 3 days ago, but is yet to make appt. Pt to f/u PCP for further management for come in to clinic for physical exam. - RTC for physical as needed. Pt verbalized understanding of instructions and plan. MARCIANO Carpio [email or web address] Not available 02/09/2022 13:23:27 Plan of Treatment Reminders Order Date Submit Date Provider Last Modified By Organization Details Last Modified Time Details Appointments None recorded. Lab None recorded. Referral None recorded. Procedures None recorded. Surgeries None recorded. Imaging None recorded. Medication Orders sildenafil 25 mg tablet 2021 [facility] [address] [place], [address], 13:22:59 sildenafil 25 mg tablet 2021 [facility] [address] [place], [address], 17:45:17 Patient TargetsNo targets recorded. Patient InstructionsNo instructions recorded. Reason for Referral None Reported. Medical Equipment None Reported. Medications Name Sig Start Date Stop Date Status Note LastModified by Organization Details LastModified Time sildenafil 25 mg tablet Take 1 tablet every day by oral route as directed for 30 days. active Not Available Not Available Not Avai lable Vitals None Recorded Social History None recorded. Functional Status None recorded. Mental Status None recorded. Family History Nothing Reported. Medical History No medical history recorded. Past Encounters Encounter ID Performer Location Encounter Start Date Encounter Closed Date Diagnosis/Indication Diagnosis SNOMED-CT Code Diagnosis ICD10 Code Diagnosis Note [id number] SABINO R[facility] NP Main Office [address] [place] [address] 12/28/2021 17:34:23 03/18/2022 12:00:33 Erectile dysfunction 998687180 F52.21 Patient ne w to facility [id number] 70727 Z76.89 [id number] S[facility] R[facility] NP Main Office [address] [place] [address] 02/09/2022 13:17:28 04/06/2022 15:18:57 Erectile dysfunction 926908367 F52.21 Renewal of prescription 723572771 Z76.0 Health Concerns Section Related Observation LastModified by Organization Detai ls LastModified Time None Recorded Concern Status LastModified by Organization Details LastModified Time None Recorded Advance Directives Directive None Recorded Payers Encounter Date Sequence Insurance Name Policy Number Policy Tanner Covered Member ID Tanner Member ID Guarantor Name 12/28/2021 1 [facility] Matthieu Fish [id number] Matthieu Fish 02/09/2022 1 [facility] Matthieu Fish [id number] Matthieu Fish Notes Date Note Type Note Provider Name and Address Organization Details Recorded Time 12/28/2021 text/html 56 yo male presents via TM for sexual dysfunction. Moved from [place] to [place], [place] and searching for a PCP nearby his home. Has been diagnosed with ED in past (verified on medication vial). Has been taking Sildenafil 25mg PRN x 30 days for the past year and it has been helping. States BP at home systolic 120s. Denies any lightheadedness, dizziness, hypotension, urinary pattern, abd/chest/bladder pain. No fam or personal hx of prostate cancer. meds: noneNBETHANIE RIVER NP [address] [place], [address], [place] [facility] 12/28/2021 23:14:10 02/09/2022 text/html 56 yo male presents via TM for med refill for sexual dysfunction. Moved from [place] to [place], [place] and established PCP 3 days ago w/ new insurance. States that he has yet to make appt w/ new PCP. Has been diagnosed with ED in past (verified on medication vial). Has been taking Sildenafil 25mg PRN x 30 days for the past year and it has been helping. States BP at home systolic 120s. Denies any lightheadedness, dizziness, hypotension, urinary pattern, abd/chest/bladder pain. No fam or personal hx of prostate cancer.meds: Sildenafil 25mgNKDA SABINO RIVER NP [address] [place], [address], [place] - [facility] 02/09/2022 13:24:30
--- OUTSIDE RECORDS SUMMARY | 2024-05-19 10:16 | XMS_ITS | Clinical Summary ---
Author Organization [facility] Balwinder fitzgerald [facility] Address [address] [place] [address] Care Team Providers Care Auction Block Clerk Name Role Phone Hoang Nguyen MD Primary Care Provider [phone] Allergies No known active allergies Medications sildenafiL (VIAGRA) 25 mg tablet Take 25 mg by mouth. Active Active Problems No known active problems Encounters Date Type Department Care Team Description 05/02/2024 External Device Data [facility] ABSTRACTION Provider, Abstract 05/02/2024 External Device Data [facility] ABSTRACTION Provider, Abstract 04/29/2024 External Device Data [facility] ABSTRACTION Provider, Abstract 04/28/2024 External Device Data [facility] ABSTRACTION Provider, Abstract 04/18/2024 External Device Data [facility] ABSTRACTION Provider, Abstract 04/04/2024 External Device Data [facility] ABSTRACTION Provider, [...] Due Date Last Done Comments PNEUMOCOCCAL VACCINE 0-49 YEARS (1 of 2 - PCV) 972 DTAP/TDAP/TD VACCINES (1 - Tdap) 1984 HEPATITIS B VACCINES (1 of 3 - 19+ 3-dose series) 10/24 COLORECTAL SCREENING 2010 Colorectal Cancer Screening 2010 FIT-DNA Q 3 years 2010 FIT/FOBT Q 1 year 2010 Flex Sig/CT Colonography Q 5 years 2010 ZOSTER VACCINE (1 of 2) 11/19/2015 INFLUENZA VACCINE (#1) 2023 Insurance [employer] CHOICE [id number] [place] [address] [facility] CHOICE Care Teams Auction Block Clerk Relationship Specialty Start Date End Date Hoang Nguyen MD [address] [place] [phone] PCP - General Family Practice 04/22/23
--- OUTSIDE RECORDS SUMMARY | 2024-05-19 10:17 | XMS_ITS | Referral Summary ---
Author Organization [facility] Address [address] [place] [address] Care Team Providers Care Data Analyst Report Writer Name Role Phone No, Physician Primary Care Provider [phone] Allergies No known active allergies Medications sildenafiL [...] of Treatment Not on file Care Teams Data Analyst Report Writer Relationship Specialty Start Date End Date No, Physician PCP - General 09/01/22
--- OUTSIDE RECORDS SUMMARY | 2024-05-19 10:17 | XMS_ITS | Clinical Summary ---
Author Organization [facility] Address [address] [place] [address] Care Team Providers Care Fruit Thinner Machine Operator Name Role Phone No, Physician Primary Care Provider [phone] Allergies No known active allergies Medications sildenafiL [...] age to complete this topic Care Teams Fruit Thinner Machine Operator Relationship Specialty Start Date End Date No, Physician PCP - General 09/01/22
== END 2024-05-19 10:10 | disposition home or self-care (01) ==
PROVIDERS: Emergency Provider Nurse Practitioner Family; PCP Nurse Practitioner Family
DX: L23.7 Allergic contact dermatitis due to plants, except food (principal); Z87.891 Personal history of nicotine dependence
CPT/HCPCS: 99213; G0463

== ENCOUNTER 2024-10-24 10:16 | Outpatient (CLI) | payer BC, SELFPAY ==
--- OUTSIDE RECORDS SUMMARY | 2024-10-24 10:47 | XMS_ITS | Clinical Summary ---
Author Organization [facility] Address [address] [place] [address] Care Team Providers Care Fabric Cutter Name Role Phone No, Physician Primary Care Provider [phone] Allergies No known active allergies Medications sildenafiL [...] 10:51 AM CDT Height 178.5 cm (5' 10.28) 10/30/2022 10:51 AM CDT Body Mass Index 27.85 10/30/2022 10:51 AM CDT Plan of Treatment Health Maintenance Due Date Last Done Comments Colon Cancer Screening-Colonoscopy 1965 Depression Screening 1965 Hepatitis C Screening 1965 Prostate Cancer Screening-PSA 1965 DTaP/Tdap/Td Vaccine (1 - Tdap) 1976 Hepatitis B Screening 11/19/1983 Regular Well Visit/Exam 18-64 11/19/1983 Zoster Vaccine (1 of 2) 11/19/2015 Influenza Vaccine (#1) 2024 Pneumococcal vaccine <65 Aged Out No longer eligible based on patient's age to complete this topic Care Teams Fabric Cutter Relationship Specialty Start Date End Date No, Physician PCP - General 09/01/22
--- OUTSIDE RECORDS SUMMARY | 2024-10-24 10:47 | XMS_ITS | Clinical Summary ---
[facility] Address [address] [place] [address] Care Team Providers Care Boiler Coverer Helper Name Role Phone Hoang Nguyen MD Primary Care Provider [phone] Allergies No known active allergies Medications sildenafiL (VIAGRA) 25 mg tablet Take 25 mg by mouth. Active Active Problems No known active problems Family History Medical History Relation Name Comments [...] 11:29 AM CDT Height 185.4 cm (6' 1) 05/04/2023 11:29 AM CDT Body Mass Index 24.99 05/04/2023 11:29 AM CDT Plan of Treatment Health Maintenance Due Date Last Done Comments DTAP/TDAP/TD VACCINES (1 - Tdap) 1984 HEPATITIS B VACCINES (1 of 3 - 19+ 3-dose series) 10/24 COLORECTAL SCREENING 2010 Colorectal Cancer Screening 2010 FIT-DNA Q 3 years 2010 FIT/FOBT Q 1 year 2010 Flex Sig/CT Colonography Q 5 years 2010 ZOSTER VACCINE (1 of 2) 11/19/2015 INFLUENZA VACCINE (#1) [address] [facility] CHOICE [id number] [facility] CHOICE Care Teams Boiler Coverer Helper Relationship Specialty Start Date End Date Hoang Nguyen MD [address] [place] [phone] PCP - General Family Practice 04/22/23
[2024-10-24 10:57] LABS: Hematocrit 38.7 % (42.0-52.0); Hemoglobin 12.8 g/dL (14.0-18.0); Immature Granulocyte Percent A 0.2 % (0-0.5); Immature Platelet Fraction Pct 6.0 % (0.9-11.2); Lymphocytes Absolute Auto 1.98 K/mm3 (0.9-3.2); Mean Corpuscular HGB Conc 33.1 g/dl (32-36); Mean Corpuscular Hemoglobin 28.1 pg (26-34); Mean Corpuscular Volume 84.9 fl (80-100); Nucleated Red Blood Cells Absolute Auto 0.000 K/mm3 (0.0-0.012); Nucleated Red Blood Cells Perc 0.0 % (0.0-0.2); Platelet Count Result 122 k/mm3 (150-375); Red Blood Count 4.56 M/mm3 (4.6-6.20); White Blood Count 5.1 K/mm3 (4.5-10.0)
[2024-10-24 11:04] LABS: Alanine Aminotransferase 17 U/L (6-50); Albumin Level 3.9 g/dL (3.5-5.1); Alkaline Phosphatase 64 U/L (38-126); Anion Gap 7 mmol/L (4-12); Aspartate Amino Transferase 26 U/L (17-59); Bilirubin,Total 0.5 mg/dL (0.2-1.3); Blood Urea Nitrogen 11 mg/dL (9-20); Calcium 9.1 mg/dL (8.4-10.2); Carbon Dioxide 26 mmol/L (22-30); Chloride 103 mmol/L (98-107); Estimated Glomerular Filt Rate > 60; Glucose 91 mg/dL (65-110); Potassium 3.9 mmol/L (3.4-5.0); Sodium 136 mmol/L (137-145); Total Protein 6.4 g/dL (6.3-8.2)
== END 2024-10-24 10:17 | disposition home or self-care (01) ==
LOC: ANHLAB 10:19
PROVIDERS: PCP Nurse Practitioner Family; Visit Provider Nurse Practitioner Family
DX: D69.6 Thrombocytopenia, unspecified (principal); K70.30 Alcoholic cirrhosis of liver without ascites; N52.9 Male erectile dysfunction, unspecified; D61.818 Other pancytopenia
CPT/HCPCS: 36415; 80053; 85025; 85055